=== PATIENT | female | born 1995 | race Caucasian/White ===

== ENCOUNTER 2018-10-09 00:40 | Emergency (ER) | payer SELFPAY ==
--- NOTE | 2018-10-09 01:05 | EDM.PDOC ---
ED HPI GENERAL MEDICAL PROBLEM - General Chief Complaint: ENT Problem Stated Complaint: BLOOD IS COMING OUT OF RT EAR Time Seen by Provider: 10/09/18 01:03 - History of Present Illness INITIAL COMMENTS - FREE TEXT/NARRATIVE: HISTORY AND PHYSICAL: History of present illness: Patient's 22-year-old female presents with concern of bloody discharge and right ear pain 1 day patient denies fever chills nausea vomiting or other complaints Review of systems: As per history of present illness and below otherwise all systems reviewed and negative. Past medical history: As per history of present illness and as reviewed below otherwise noncontributory. Surgical history: As per history of present illness and as reviewed below otherwise noncontributory. Social history: No reported history of drug or alcohol abuse. Family history: As per history of present illness and as reviewed below otherwise noncontributory. Physical exam: HEENT: Atraumatic, normocephalic, pupils reactive, negative for conjunctival pallor or scleral icterus, mucous membranes moist, throat clear, neck supple, nontender, trachea midline. Patient's inflammation and bloody discharge noted in the right external auditory canal TM is incompletely visualized Lungs: Clear to auscultation, breath sounds equal bilaterally, chest nontender. Heart: S1S2, regular, negative for clicks, rubs, or JVD. Abdomen: Soft, nondistended, nontender. Negative for masses or hepatosplenomegaly. Negative for costovertebral tenderness. Pelvis: Stable nontender. Genitourinary: Deferred. Rectal: Deferred. Extremities: Atraumatic, negative for cords or calf pain. Neurovascular unremarkable. Neuro: Awake, alert, oriented. Cranial nerves II through XII unremarkable. Cerebellum unremarkable. Motor and sensory unremarkable throughout. Exam nonfocal. Diagnostics: None Therapeutics: None Impression: #1 otitis media/externa Definitive disposition and diagnosis as appropriate pending reevaluation and review of above. right ear Pain Score (Numeric/FACES): 10 - Related Data Allergies Allergy/AdvReac Type Severity Reaction Status Date / Time No Known Allergies Allergy Verified 10/09/18 00:44 Home Meds: Home Meds . [No Known Home Meds] 10/09/18 [History] Past Medical History - Past Health History Medical/Surgical History: Denies Medical/Surgical History Social & Family History - Family History Family Medical History: Noncontributory - Tobacco Use Smoking Status *Q: Never Smoker - Recreational Drug Use Recreational Drug Use: No ED ROS GENERAL - Review of Systems Review Of Systems: ROS reveals no pertinent complaints other than HPI. ED EXAM, GENERAL - Physical Exam Exam: See Below (See dictation) Course - Vital Signs Last Recorded V/S: Last Vital Signs Temp 36.6 C 10/09/18 00:40 Pulse 76 10/09/18 00:40 Resp 18 10/09/18 00:40 BP 141/91 H 10/09/18 00:40 Pulse Ox 96 10/09/18 00:40 Departure - Departure Time of Disposition: :05 Disposition: Home, Self-Care 01 Condition: Good Clinical Impression: Otitis media, Otitis externa - Discharge Information Additional Instructions: The following information is given to patients seen in the emergency department who are being discharged to home. This information is to outline your options for follow-up care. We provide all patients seen in our emergency department with a follow-up referral. The need for follow-up, as well as the timing and circumstances, are variable depending upon the specifics of your emergency department visit. If you don't have a primary care physician on staff, we will provide you with a referral. We always advise you to contact your personal physician following an emergency department visit to inform them of the circumstance of the visit and for follow-up with them and/or the need for any referrals to a consulting specialist. The emergency department will also refer you to a specialist when appropriate. This referral assures that you have the opportunity for followup care with a specialist. All of these measure are taken in an effort to provide you with optimal care, which includes your followup. Under all circumstances we always encourage you to contact your private physician who remains a resource for coordinating your care. When calling for followup care, please make the office aware that this follow-up is from your recent emergency room visit. If for any reason you are refused follow-up, please contact the [facility] emergency department at and asked to speak to the emergency department charge nurse. Cortisporin/Keflex as prescribed follow-up primary medical doctor as needed as discussed return as needed as discussed
== END 2018-10-09 01:10 | disposition home or self-care (01) ==
LOC: MW.ED 00:40
DX: H60.91 Unspecified otitis externa, right ear (principal); H66.91 Otitis media, unspecified, right ear
CPT/HCPCS: 99282

== ENCOUNTER 2019-10-18 11:21 | Emergency (ER) | payer BC ==
[2019-10-18] MEDS ORDERED: Ketorolac 60 MG/2 ML SDV IM ONE (11:42)
--- NOTE | 2019-10-18 11:50 | EDM.PDOC ---
ED HPI GENERAL MEDICAL PROBLEM - General Chief Complaint: Upper Extremity Injury/Pain Stated Complaint: NERVE PAIN IN HAND Time Seen by Provider: 10/18/19 11:22 Source of Information: Reports: Patient History Limitations: Reports: No Limitations - History of Present Illness INITIAL COMMENTS - FREE TEXT/NARRATIVE: HISTORY AND PHYSICAL: History of present illness: Patient is a 24-year-old female who presents to the emergency room with complaints of intermittent numbness and tingling to her right distal fingertips. 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 She did not have this evaluated at that time. Although the pain has mostly improved she now has intermittent numbness and tingling to the distal tips of all 5 fingers. She states some of the times it is her first 3 fingers and other times it is her third through fifth fingertips. She denies any weakness or difficulty with flexion and extension of the fingers and/or wrist. She is concerned she has Review of systems: As per history of present illness and below otherwise all systems reviewed and negative. Past medical history: As per history of present illness and as reviewed below otherwise noncontributory. Surgical history: As per history of present illness and as reviewed below otherwise noncontributory. Social history: See social history for further information Family history: As per history of present illness and as reviewed below otherwise noncontributory. Physical exam: General: Well-developed and well-nourished 24-year-old female. Alert and oriented. Nontoxic-appearing and in no acute distress. HEENT: Atraumatic, normocephalic, pupils equal and reactive bilaterally, negative for conjunctival pallor or scleral icterus, mucous membranes moist, TM normal bilateral, trachea midline. No drooling or trismus noted. No meningeal signs. No hot potato voice noted. Lungs: Clear to auscultation, breath sounds equal bilaterally, chest nontender. Heart: S1S2, regular rate and rhythm without overt murmur Abdomen: Soft, nondistended, nontender. Skin: Intact, warm, dry. No lesions or rashes noted. Extremities: Atraumatic, moves all extremities per self without difficulty or deficits, good flexion and extension of fingers and wrist. Good strength of fingers and wrist (resistance/force). +CMS. Neurovascular unremarkable. Neuro: Awake, alert, oriented. Cranial nerves II through XII unremarkable. Cerebellum unremarkable. Motor and sensory unremarkable throughout. Exam nonfocal. Notes: She declines wanting any x-rays at this time. We discussed the need to follow up with orthopedics. This does sound like carpel tunnel syndrome, although she states she gets occasional numbness and tingling in her 3rd-5th digits as well. We will try a cock-up wrist splint to help with symptoms. Medication and supportive care measures were reviewed and discussed. Voices understanding and is agreeable to plan of care. Denies any further questions or concerns at this time. Diagnostics: None Therapeutics: Cock-up wrist splint Prescription: Medrol and Diclofenac Impression: Paresthesia Plan: 1. Use the cock-up wrist splint as directed. 2. Avoid over-use or prolonged repetitive movements. 3. Take the medications as prescribed - WITH FOOD. Tylenol can be taken in adjunction to the Diclofenac. 4. Follow up with the orthopedic provider as we discussed. 5. Return to the ED as needed and as discussed. Definitive disposition and diagnosis as appropriate pending reevaluation and review of above. Right Hand Pain Score (Numeric/FACES): 6 - Related Data Allergies Allergy/AdvReac Type Severity Reaction Status Date / Time No Known Allergies Allergy Verified 10/18/19 11:36 Home Meds: Home Meds Diclofenac Sodium 50 mg PO TID PRN #30 tablet. 10/18/19 [Rx] methylPREDNISolone [Medrol] 1 dose PO DAILY 6 Days #1 dospk 10/18/19 [Rx] Past Medical History - Past Health History Medical/Surgical History: Denies Medical/Surgical History Social & Family History - Family History Family Medical History: Noncontributory - Tobacco Use Smoking Status *Q: Never Smoker Second Hand Smoke Exposure: No - Caffeine Use Caffeine Use: Reports: None - Alcohol Use Days Per Week of Alcohol Use: 7 Number of Drinks Per Day: 10 Total Drinks Per Week: 70 - Recreational Drug Use Recreational Drug Use: No Review of Systems - Review of Systems Review Of Systems: Comprehensive ROS is negative, except as noted in HPI. ED EXAM, GENERAL - Physical Exam Exam: See Below (See dictation) Course - Vital Signs Last Recorded V/S: Last Vital Signs Temp 96.5 F L 10/18/19 11:33 Pulse 83 10/18/19 11:33 Resp 18 10/18/19 11:33 BP 134/93 H 10/18/19 11:33 Pulse Ox 98 10/18/19 11:33 - Orders/Labs/Meds Orders: Active Orders 24 hr Category Date Time Status DME for Discharge [COMM] Stat Oth 10/18/19 11:42 Ordered Meds: Medications Discontinued Medications Generic Name Dose Route Start Last Admin Trade Name Freq PRN Reason Stop Dose Admin Ketorolac Tromethamine 60 mg 10/18/19 11:42 Toradol IM 10/18/19 11:43 ONETIME ONE Departure - Departure Time of Disposition: 11:51 Disposition: Home, Self-Care 01 Clinical Impression: Right hand paresthesia - Discharge Information Prescriptions: Diclofenac Sodium 50 mg PO TID PRN #30 tablet.dr PEÑALOZA Reason: Pain methylPREDNISolone [Medrol] 1 dose PO DAILY 6 Days #1 dospk Instructions: Paresthesia, [id number] Referrals: PCP,None [Primary Care Provider] - Forms: ED Department Discharge Additional Instructions: The following information is given to patients seen in the emergency department who are being discharged to home. This information is to outline your options for follow-up care. We provide all patients seen in our emergency department with a follow-up referral. The need for follow-up, as well as the timing and circumstances, are variable depending upon the specifics of your emergency department visit. If you don't have a primary care physician on staff, we will provide you with a referral. We always advise you to contact your personal physician following an emergency department visit to inform them of the circumstance of the visit and for follow-up with them and/or the need for any referrals to a consulting specialist. The emergency department will also refer you to a specialist when appropriate. This referral assures that you have the opportunity for follow-up care with a specialist. All of these measure are taken in an effort to provide you with optimal care, which includes your follow-up. Under all circumstances we always encourage you to contact your private physician who remains a resource for coordinating your care. When calling for follow-up care, please make the office aware that this follow-up is from your recent emergency room visit. If for any reason you are refused follow-up, please contact the [facility] Emergency Department at and asked to speak to the emergency department charge nurse. [facility] [address] [place] [address] [facility] [address] [place] [address] 1. Use the cock-up wrist splint as directed. 2. Avoid over-use or prolonged repetitive movements. 3. Take the medications as prescribed - WITH FOOD. Tylenol can be taken in adjunction to the Diclofenac. 4. Follow up with the orthopedic provider as we discussed. 5. Return to the ED as needed and as discussed. Sepsis Event Note - Evaluation Sepsis Screening Result: No Definite Risk - Focused Exam Vital Signs: Vital Signs Temp Pulse Resp BP Pulse Ox 10/18/19 11:33 96.5 F L 83 18 134/93 H 98 Date Exam was Performed: 10/18/19 Time Exam was Performed: 11:53 - My Orders Last 24 Hours: My Active Orders 10/18/19 11:42 DME for Discharge [COMM] Stat - Assessment/Plan Last 24 Hours: My Active Orders 10/18/19 11:42 DME for Discharge [COMM] Stat
== END 2019-10-18 12:02 | disposition home or self-care (01) ==
LOC: MW.ED 11:21
DX: R20.2 Paresthesia of skin (principal)
CPT/HCPCS: 96372; 99283; J1885

== ENCOUNTER 2019-12-25 22:51 | Emergency (ER) | payer BC ==
[2019-12-25] MEDS ORDERED: Acetaminophen/oxyCODONE 325-5 MG Tab PO ONE (23:54)
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
[2019-12-26 00:26] LABS: BLOOD UREA NITROGEN,BUN 8 mg/dL (7.0-18.0); CARBON DIOXIDE,CO2 28.8 mmol/L (21.0-32.0); CHLORIDE,CL 103 mmol/L (98-107); GLUCOSE RANDOM 107 mg/dL (74-106); POTASSIUM,K 3.9 mmol/L (3.5-5.1); SODIUM,NA 142 mmol/L (136-145)
[2019-12-26] MEDS ORDERED: Bupivacaine 0.5% 10 ML SDV INJECT ONE (01:13)
== END 2019-12-26 03:50 | disposition home or self-care (01) ==
LOC: MW.ED 22:51
DX: S31.41XA Laceration without foreign body of vagina and vulva, initial encounter (principal); V94.31XA Injury to rider of (inflatable) recreational watercraft being pulled behind other watercraft, initial encounter
CPT/HCPCS: 12001; 36415; 80048; 81001; 81025; 85025; 99283; A9270; 99282

== ENCOUNTER 2020-06-12 23:03 | Emergency (ER) | payer SELFPAY ==
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
== END 2020-06-13 00:05 | disposition home or self-care (01) ==
LOC: MW.ED 23:03
DX: T74.21XA Adult sexual abuse, confirmed, initial encounter (principal)
CPT/HCPCS: 99284

== ENCOUNTER 2020-06-19 17:36 | Inpatient (IN) | payer BC ==
[2020-06-19 19:17] LABS: ACETAMINOPHEN <2.0 ug/mL; BLOOD UREA NITROGEN,BUN 7 mg/dL (7.0-18.0); CARBON DIOXIDE,CO2 22.5 mmol/L (21.0-32.0); CHLORIDE,CL 101 mmol/L (98-107); GLUCOSE RANDOM 80 mg/dL (74-106); POTASSIUM,K 3.6 mmol/L (3.5-5.1); SODIUM,NA 139 mmol/L (136-145)
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
[2020-06-19] MEDS ORDERED: MVI, Adult with Vitamin K 10 ML, Thiamine 100 MG, Folic Acid 1 MG in Sodium Chloride 0.... IV ONE ×4 (23:04)
[2020-06-20] MEDS ORDERED: Sodium Chloride 0.9% 1,000 ML IV SCH (00:30)
[2020-06-20 06:06] LABS: BLOOD UREA NITROGEN,BUN 5 mg/dL (7.0-18.0); CARBON DIOXIDE,CO2 24.7 mmol/L (21.0-32.0); CHLORIDE,CL 105 mmol/L (98-107); GLUCOSE RANDOM 69 mg/dL (74-106); POTASSIUM,K 3.6 mmol/L (3.5-5.1); SODIUM,NA 140 mmol/L (136-145)
[2020-06-20] MEDS ORDERED: Ondansetron 4 MG/2 ML SDV IVPUSH PRN (07:55)
[2020-06-20] MEDS ORDERED: Docusate Sodium 100 MG Cap PO PRN (07:55)
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
[2020-06-20] MEDS: Thiamine 100 MG in Sodium Chloride 0.9% 100 ML IV SCH (08:42)
[2020-06-20] MEDS: Sodium Chloride 0.9% 1,000 ML IV SCH ×2 (08:44→17:31)
[2020-06-20] MEDS ORDERED: Folic Acid 50 MG/10 ML MDV SUBCUT SCH (09:00)
[2020-06-20] MEDS ORDERED: Diazepam 5 MG Tab PO SCH (10:30)
[2020-06-20] MEDS: LORazepam 2 MG/ML SDV IVPUSH PRN ×2 (13:56→19:37)
[2020-06-20] MEDS: Diazepam 5 MG Tab PO SCH ×2 (14:16→22:00)
--- NOTE | 2020-06-20 14:31 | US ---
INDICATION: Transaminitis, history of alcohol abuse. COMPARISON: None. TECHNIQUE: Real time harper scale imaging and color Doppler analysis was performed of the right upper quadrant. FINDINGS: Liver: The liver is normal in size measuring 17.4 cm in length. Increased echogenicity compatible with hepatic steatosis. No focal liver lesions. Gallbladder: No stones or sludge. No wall thickening or pericholecystic fluid. Negative sonographic Carrasquillo sign. Bile ducts: No biliary dilation. The common bile duct measures 4 mm in diameter. Pancreas: Normal where seen. Right kidney: The right kidney measures 10.1 cm in length. No hydronephrosis, calculus, or mass. Vascular: Normal caliber proximal abdominal aorta. The IVC is patent. IMPRESSION: 1. Diffuse hepatic steatosis. 2. Exam otherwise unremarkable. Dictated by Belem Zacarias MD @ Jun 20 2020 2:23PM Signed by Dr. Belem Zacarias @ Jun 20 2020 2:29PM
[2020-06-21] MEDS: Sodium Chloride 0.9% 1,000 ML IV SCH ×3 (01:09→18:10)
[2020-06-21] MEDS: Diazepam 5 MG Tab PO SCH ×3 (05:27→21:53)
[2020-06-21 06:27] LABS: BLOOD UREA NITROGEN,BUN 4 mg/dL (7.0-18.0); CARBON DIOXIDE,CO2 29.4 mmol/L (21.0-32.0); CHLORIDE,CL 99 mmol/L (98-107); GLUCOSE RANDOM 89 mg/dL (74-106); POTASSIUM,K 4.1 mmol/L (3.5-5.1); SODIUM,NA 136 mmol/L (136-145)
[2020-06-21] MEDS ORDERED: Magnesium Sulfate/Water 4 GM/100 ML BAG IV ONE (07:50)
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
[2020-06-21] MEDS ORDERED: Magnesium Sulfate/Water 4 GM in Premix Bag 1 BAG IV ONE (09:15)
[2020-06-21] MEDS ORDERED: Magnesium Sulfate/Water 100 ML IV ONE (09:15)
[2020-06-21] MEDS: Folic Acid 1 MG Tab PO SCH (09:31)
[2020-06-21] MEDS: Thiamine 100 MG in Sodium Chloride 0.9% 100 ML IV SCH (09:53)
[2020-06-21] MEDS ORDERED: diphenhydrAMINE 25 MG Cap PO PRN (21:03)
[2020-06-22] MEDS: Sodium Chloride 0.9% 1,000 ML IV SCH ×3 (01:31→18:05)
[2020-06-22] MEDS: Diazepam 5 MG Tab PO SCH ×3 (06:04→20:31)
[2020-06-22 06:17] LABS: BLOOD UREA NITROGEN,BUN 3 mg/dL (7.0-18.0); CARBON DIOXIDE,CO2 24.5 mmol/L (21.0-32.0); CHLORIDE,CL 101 mmol/L (98-107); GLUCOSE RANDOM 87 mg/dL (74-106); SODIUM,NA 134 mmol/L (136-145)
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
[2020-06-22] MEDS: Folic Acid 1 MG Tab PO SCH (09:35)
[2020-06-22] MEDS: Thiamine 100 MG in Sodium Chloride 0.9% 100 ML IV SCH (09:38)
[2020-06-22] MEDS: LORazepam 2 MG/ML SDV IVPUSH PRN (15:33)
[2020-06-23] MEDS: Sodium Chloride 0.9% 1,000 ML IV SCH ×2 (01:36→09:12)
[2020-06-23 06:50] LABS: BLOOD UREA NITROGEN,BUN 5 mg/dL (7.0-18.0); CARBON DIOXIDE,CO2 24.5 mmol/L (21.0-32.0); CHLORIDE,CL 102 mmol/L (98-107); GLUCOSE RANDOM 90 mg/dL (74-106); POTASSIUM,K 3.8 mmol/L (3.5-5.1); SODIUM,NA 136 mmol/L (136-145)
[2020-06-23] MEDS: Diazepam 5 MG Tab PO SCH (09:09)
[2020-06-23] MEDS: Folic Acid 1 MG Tab PO SCH (09:09)
[2020-06-23] MEDS: Thiamine 100 MG in Sodium Chloride 0.9% 100 ML IV SCH (09:37)
[2020-06-23] MEDS ORDERED: Magnesium Sulfate/Water 2 GM/50 ML Premix Bag IV ONE (14:51)
[2020-06-23] MEDS ORDERED: Magnesium Sulfate/Water 2 GM/50 ML BAG IV ONE (15:00)
--- NOTE | 2020-06-23 15:05 | PCM.PN ---
- General Info Date of Service: 06/23/20 - Review of Systems Systems Review Comment:: feeling better, no complaints - Patient Data Vitals - Most Recent: Last Vital Signs Temp 36.2 C 06/23/20 12:13 Pulse 64 06/23/20 12:13 Resp 16 06/23/20 12:13 BP 137/98 H 06/23/20 12:13 Pulse Ox 98 06/23/20 12:13 Weight - Most Recent: 54.885 kg I&O - Last 24 Hours: Intake & Output 06/23/20 06/23/20 06/23/20 06:59 14:59 22:59 Intake Total 3069 1027 Output Total 550 Balance 2519 1027 Lab Results Last 24 Hours: Laboratory Results - last 24 hr 06/23/20 06/23/20 Range/Units 06:00 06:00 WBC 3.08 L (4.0-11.0) K/uL RBC 3.47 L (4.30-5.90) M/uL Hgb 12.3 (12.0-16.0) g/dL Hct 36.7 (36.0-46.0) % MCV 105.8 H (80.0-98.0) fL MCH 35.4 H (27.0-32.0) pg MCHC 33.5 (31.0-37.0) g/dL RDW Std Deviation 51.1 (28.0-62.0) fl RDW Coeff of Logan 13 (11.0-15.0) % Plt Count 70 L (150-400) K/uL MPV 11.60 (7.40-12.00) fL Neut % (Auto) 51.6 (48.0-80.0) % Lymph % (Auto) 30.8 (16.0-40.0) % [place] % (Auto) 14.0 (0.0-15.0) % Eos % (Auto) 2.6 (0.0-7.0) % Baso % (Auto) 1.0 (0.0-1.5) % Neut # (Auto) 1.6 (1.4-5.7) K/uL Lymph # (Auto) 1.0 (0.6-2.4) K/uL [place] # (Auto) 0.4 (0.0-0.8) K/uL Eos # (Auto) 0.1 (0.0-0.7) K/uL Baso # (Auto) 0.0 (0.0-0.1) K/uL Nucleated RBC % 0.0 /100WBC Nucleated RBCs # 0 K/uL Sodium 136 (136-145) mmol/L Potassium 3.8 (3.5-5.1) mmol/L Chloride 102 (98-107) mmol/L Carbon Dioxide 24.5 (21.0-32.0) mmol/L BUN 5 L (7.0-18.0) mg/dL Creatinine 0.7 (0.6-1.0) mg/dL Est Cr Clr Drug Dosing 105.17 mL/min Estimated GFR (MDRD) > 60.0 ml/min Glucose 90 (74-106) mg/dL Calcium 8.7 (8.5-10.1) mg/dL Phosphorus 3.4 (2.6-4.7) mg/dL Magnesium 1.7 L (1.8-2.4) mg/dL Total Bilirubin 2.1 H (0.2-1.0) mg/dL AST 257 H (15-37) IU/L ALT 105 H (14-63) IU/L Alkaline Phosphatase 139 H (46-116) U/L Total Protein 6.8 (6.4-8.2) g/dL Albumin 3.1 L (3.4-5.0) g/dL Globulin 3.7 (2.6-4.0) g/dL Albumin/Globulin Ratio 0.8 L (0.9-1.6) Med Orders - Current: Current Medications Clomipramine HCl (Clomipramine Hcl) 75 mg PO QPM [facility] Last Admin: 06/22/20 18:07 Dose: 75 mg Documented by: Diphenhydramine HCl (Benadryl) 25 mg PO TID PRN PRN Reason: Itching Last Admin: 06/21/20 21:14 Dose: 25 mg Documented by: Docusate Sodium (Colace) 100 mg PO BID PRN PRN Reason: Constipation Folic Acid (Folic Acid) 1 mg PO DAILY [facility] Last Admin: 06/23/20 09:09 Dose: 1 mg Documented by: Thiamine HCl 100 mg/ Sodium (Chloride) 101 mls @ 202 mls/hr IV DAILY [facility] Last Admin: 06/23/20 09:37 Dose: 202 mls/hr Documented by: Magnesium Sulfate (Magnesium Sulfate In Water Premix) 2 gm in 50 mls @ 50 mls/hr IV ONETIME ONE Stop: 06/23/20 15:59 Lorazepam (Ativan) 0 mg IVPUSH Q4H PRN; Protocol PRN Reason: CIWAA Last Admin: 06/22/20 15:33 Dose: 1 mg Documented by: Ondansetron HCl (Zofran) 4 mg IVPUSH Q4H PRN PRN Reason: Nausea Last Admin: 06/20/20 10:30 Dose: 4 mg Documented by: Discontinued Medications Diazepam (Valium.) 5 mg PO BID [facility] Last Admin: 06/20/20 10:30 Dose: 5 mg Documented by: Diazepam (Valium.) 10 mg PO TID [facility] Last Admin: 06/21/20 05:27 Dose: 10 mg Documented by: Diazepam (Valium.) 5 mg PO TID [facility] Last Admin: 06/22/20 06:04 Dose: 5 mg Documented by: Diazepam (Valium.) 5 mg PO BID [facility] Last Admin: 06/23/20 09:09 Dose: 5 mg Documented by: Diazepam (Valium.) 5 mg PO DAILY [facility] Folic Acid (Folic Acid) 1 mg SUBCUT DAILY [facility] Last Admin: 06/20/20 08:41 Dose: 1 mg Documented by: Multivitamins/Minerals 10 ml/Thiamine HCl 100 mg/ Folic Acid 1 mg/ Sodium Chloride 1,011.2 mls @ 999 mls/hr IV ONETIME ONE Stop: 06/20/20 00:04 Last Admin: 06/19/20 23:39 Dose: 999 mls/hr Documented by: Sodium Chloride (Normal Saline) 1,000 mls @ 125 mls/hr IV ASDIRECTED [facility] Last Admin: 06/20/20 00:53 Dose: 125 mls/hr Documented by: Sodium Chloride (Normal Saline) 1,000 mls @ 125 mls/hr IV Q8H [facility] Last Admin: 06/23/20 09:12 Dose: 125 mls/hr Documented by: Magnesium Sulfate (Magnesium Sulfate In Water Premix) 4 gm in 100 mls @ 50 mls/hr IV ONETIME ONE Stop: 06/21/20 09:49 Last Admin: 06/21/20 09:07 Dose: Not Given Documented by: Magnesium Sulfate (Magnesium Sulfate In Water Premix) 100 mls @ 50 mls/hr IV ONETIME ONE Stop: 06/21/20 11:14 Magnesium Sulfate 4 gm/ Premix 100 mls @ 50 mls/hr IV ONETIME ONE Stop: 06/21/20 11:14 Last Admin: 06/21/20 09:32 Dose: 50 mls/hr Documented by: - Exam General: Alert, Oriented Neck: Supple Lungs: Clear to Auscultation, Normal Respiratory Effort Cardiovascular: Regular Rate, Regular Rhythm Extremities: Non-Tender, No Pedal Edema Skin: Warm, Dry, Intact Sepsis Event Note - Evaluation Sepsis Screening Result: No Definite Risk - Focused Exam Vital Signs: Vital Signs Temp Pulse Resp BP Pulse Ox 06/23/20 12:13 36.2 C 64 16 137/98 H 98 06/23/20 09:03 36.6 C 69 16 149/103 H 99 06/23/20 04:00 36.2 C 90 16 128/97 H 97 - Problem List Review Problem List Initiated/Reviewed/Updated: Yes - My Orders Last 24 Hours: My Active Orders 06/23/20 15:00 Magnesium Sulfate/Water [Magnesium Sulfate in Water Premix] 2 gm in 50 ml IV ONETIME - Plan Plan:: This 24-year-old female admitted with alcoholic hepatitis acute alcohol intoxication and suicidal ideation with depression and anxiety 1. Alcoholic hepatitis -RUQ ultrasound obtained which shows hepatic steatosis -Hepatitis panel pending -Transaminitis improving -Encouraged high-protein high-calorie diet. 2. Acute intoxication/alcohol withdrawal -Continue to decrease Valium. Will move to 5 mg daily -CIWAA assessment with Ativan protocol as needed -Thiamine and folic acid 3. Depression/anxiety and suicidal ideation -Dr. Huertas evaluated patient please see his consultation. -Patient is no longer suicidal and has no suicidal ideations -She will be started on clomipramine 75 mg every evening for OCD/depression tendencies per recommendations of Dr. Huertas. -No longer needing suicidal precautions VTE prophylaxis: SCDs CODE STATUS: Full code Dispo: 2 to 3 days pending improvement and management of alcohol withdrawal
[2020-06-24 07:05] LABS: BLOOD UREA NITROGEN,BUN 7 mg/dL (7.0-18.0); CARBON DIOXIDE,CO2 27.5 mmol/L (21.0-32.0); CHLORIDE,CL 99 mmol/L (98-107); GLUCOSE RANDOM 91 mg/dL (74-106); POTASSIUM,K 3.9 mmol/L (3.5-5.1); SODIUM,NA 135 mmol/L (136-145)
[2020-06-24] MEDS ORDERED: Diazepam 5 MG Tab PO SCH (09:00)
--- NOTE | 2020-06-24 09:15 | CONS ---
DATE OF CONSULTATION: 06/21/2020 DATE OF : 1995 PRIMARY CARE PHYSICIAN: None PCP REFERRING PHYSICIAN: Dr. Choudhury SITE WHERE THE SERVICES ARE PROVIDED: [facility] in [place], [place]. SITE WHERE THE SERVICES ARE PROVIDED FROM OUR OFFICE: . LENGTH OF SERVICE FOR THIS 60-MINUTE INPATIENT TELEMEDICINE EVENT: 60 minutes. IDENTIFYING DATA: The patient is a 24-year-old female, who is admitted to the inpatient MICU at [facility]. She is seen for a psychiatric consultation per the request of staff attending, Dr. Choudhury, and his treatment team. CHIEF COMPLAINT: "Me being an alcoholic. And I am working on that. And I was having suicidal thoughts." HISTORY OF PRESENT ILLNESS: The patient is a 24-year-old female who was admitted to the inpatient MICU on June 19, 2020, in the face of severe alcohol intoxication and suicidal ideation. She states that she is not suicidal at this point in time, noting that when she drinks, she gets suicidal. She states "alcohol makes me so sad. My boyfriend just broke up with me." The patient states she had been drinking about "a third to a half gallon" of hard liquor. She states she had her last drink about 48 hours prior to admission. She states that in addition to her severe alcoholism, she has been struggling with depression and anxiety. She is more isolative. She wants to sleep all the time. She has a lot of racing thoughts and ruminations. She has lack of appetite. She is staying well hydrated. She states she drinks a lot of water and then uses a minimal amount of caffeine, and she is denying any other illicit substance use complicating the clinical picture. She states that it is just alcohol. In fact, she does state that if she could get sober, she feels that her quality of life will be a lot better and she will not be so depressed. She does state the one thing that complicates her situation is she has increased cleaning tendencies where she has to clean all the time and have some certain rituals that are pretty bothersome to her. She states she has a lot of guilt and feels hopeless about her situation, and she cries a lot. She has a lot of picking tendencies where she does pick at her fingers all the time until they bleed, and she does state that "my mom has OCD really bad." She has never been treated for OCD though, but she does want to get treatment for her situation both in terms of her depression and any type of OCD tendencies because they do bother her, and then, of course, she does not want to keep drinking. She does not feel that she needs inpatient treatment and would rather have some type of exposure to outpatient AA resources if possible moving forward. MEDICATIONS AT THE TIME OF PRESENTATION: None. ALLERGIES: The patient states she is allergic to estradiol. PAST MEDICAL HISTORY: Significant for alcoholic hepatitis. REVIEW OF SYSTEMS: Aside from the hepatic system, all other major organ systems are negative at this point in time for acute difficulties or complications. FAMILY PSYCHIATRIC AND CD HISTORY: The patient reports father had a history of alcoholism. She has 2 brothers, who also struggle with alcoholism. Her mom had depression and OCD, and her sister struggles with cannabis and opioid dependence. PAST PSYCHIATRIC AND CD HISTORY: The patient denies any previous psychiatric hospitalizations or chemical dependency treatment. She states her longest sobriety since the heavy drinking has been a problem over the past 4 years is currently for the past 48 to 72 hours. She denies any DWIs or any detox admissions and denies any previous suicide attempts. She does have some self-injurious behaviors, last cut on herself about 1-1/2 weeks ago, again in the face of alcohol intoxication. She had some bulimic behaviors in the past, last did that around 17 years of age, and she stopped on her own, "when I got ." PAST PSYCHIATRIC MEDICATION HISTORY: Significant for ADHD medications when the patient was around 8 to 9 years of age. The patient has never been to AA in the past. SOCIAL HISTORY: The patient was born in [place], [place], and raised in [place], [place], and [place]. She is the 5th of 6 siblings, having 2 sisters and 3 brothers. The patient's parents broke up when the patient was growing up but did get back together again. She was raised mostly by her mom. Her father worked in construction. Mother worked in retail. The patient's highest level education is 2 years of college. She had been in her current relationship for about 2 years until they just recently broke up. She has 2 children from a previous relationship. She had one at 23 years of age and one miscarriage at 21 years of age, and she feels that she has moved passed these events. She currently states that her children are with her biological mom at this point in time. The patient lives in [place] with her ex-boyfriend, but she is going to be moving back to [place] where her mom is over to [place], and she just recently got an apartment. She works at [employer], and she enjoys her job. She denies any prior service or any current legal difficulties. She is [place] in terms of her gabriel formation, agnostic at this point in time. She enjoys cleaning, watching TV, and crafts, and her goal is to finish college if she can get sober. MENTAL STATUS EXAMINATION: The patient is a 24-year-old soft-spoken white female in no apparent distress. Speech is of regular rate and rhythm. The patient is cognitively oriented x3. Psychomotor activities are within normal limits. There are no abnormal motor movements or tics observed. Gait is steady. Station is normal. Mood is depressed and a little bit anxious. Affect is consistent with stated mood, restricted and tearful at times throughout the course of the interview but cooperative overall for the purposes of the intake interview. There is no behavioral or stated evidence of acute suicidal or homicidal ideation or acute psychotic, delusional, or paranoid symptoms. Thought processes are significant for racing thoughts and ruminations; however, there are no acute manic symptoms or loose associations evident. Judgment and insight appear unimpaired at this point in time. Motivation for help is good. VITALS: 5 feet 4 inches tall, 125 pounds, 118/91, 75, 16, and 97.1 degrees. IMPRESSION: [place] I: 1. Alcohol dependence, F10.20. 2. Obsessive-compulsive disorder, F42. 3. Major depressive disorder, severe, F32.2. [place] II: None. [place] III: 1. Alcoholic hepatitis. 2. Signs and symptoms of possible alcohol withdrawal. [place] IV: Severe. [place] V: 55 to 60. PLAN: 1. Sobriety. 2. The patient is instructed to maintain good hydration status to help with stool function throughout the day. 3. AA rep is to visit the patient while the patient remains on the unit and is being medically stabilized. 4. Pastoral guidance. 5. Social Work is to visit the patient to help with insurance involvement if possible. 6. Recommend beginning a trial of Anafranil 75 mg q.h.s. to help with symptoms of depression and OCD. 7. The patient is apprised of the benefits and side effects of a newly initiated psychiatric medication regimen. She acknowledges her understanding of these facts and has no further questions by the end of the interview session. 8. Ativan per [facility] protocol. 9. Thiamine supplementation. 10.Folic acid supplementation. 11.We will consider a mood stabilizer if need be going forward if the patient has breakthrough symptoms of mood instability once on the OCD/antidepressant medication. 12.Recommend the patient follows up with outpatient psychiatry once she is medically stabilized and discharged back to the community. 13.We will continue to follow up with the patient on an as-needed basis while she remains on the inpatient MICU at [facility]. 14.We will follow up with the patient sooner if any complications in the interim. 15.Crisis plan is in place. MARLIN / EL /[id number]
[2020-06-24] MEDS: Thiamine 100 MG in Sodium Chloride 0.9% 100 ML IV SCH (09:16)
[2020-06-24] MEDS: Folic Acid 1 MG Tab PO SCH (09:16)
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
== END 2020-06-24 11:27 | disposition home or self-care (01) | DRG 280 ==
LOC: MW.ED 17:36 → MW.ICU 23:05 → MW.MS 06-22 15:38
PROVIDERS: ADMIT Internal Medicine; ATTEND Internal Medicine
DX: K70.10 Alcoholic hepatitis without ascites (principal); F10.239 Alcohol dependence with withdrawal, unspecified; U07.1 COVID-19; F32.2 Major depressive disorder, single episode, severe without psychotic features; E80.6 Other disorders of bilirubin metabolism; H54.7 Unspecified visual loss; F41.0 Panic disorder [episodic paroxysmal anxiety]; D64.9 Anemia, unspecified; F42.9 Obsessive-compulsive disorder, unspecified; Z88.8 Allergy status to other drugs, medicaments and biological substances; Y90.8 Blood alcohol level of 240 mg/100 ml or more
CPT/HCPCS: 36415; 76705; 76705-26; 80053; 80074; 80305-QW; 80307; 83735; 84100; 84443; 84703; 85025; 85610; 93005; 93010; 99285; 99285-25; A9270-GY; J2060; J2405; J3411; J3475; J7030; U0002

== ENCOUNTER 2020-11-04 05:26 | Emergency (ER) | payer SELFPAY ==
[2020-11-04] MEDS ORDERED: Sodium Chloride 0.9% 10 ML Syringe FLUSH PRN (05:48)
[2020-11-04] MEDS ORDERED: Sodium Chloride 0.9% 2.5 ML Syringe FLUSH PRN (05:48)
[2020-11-04] MEDS ORDERED: LORazepam 2 MG/ML SDV IVPUSH ONE (05:48)
--- NOTE | 2020-11-04 05:48 | EDM.PDOC ---
<AndryRandy - Last Filed: 11/04/20 06:35> ED HPI GENERAL MEDICAL PROBLEM - General Stated Complaint: FELL AND HIT HER HEAD Time Seen by Provider: 11/04/20 05:35 - History of Present Illness INITIAL COMMENTS - FREE TEXT/NARRATIVE: HISTORY AND PHYSICAL: History of present illness: This is a 25-year-old female with a history significant for alcohol use disorder in the past who presents ER today secondary to witnessed seizure by her significant other when she woke up today to go take a shower. Patient reports no prior history of seizures. Patient denies any history of hypertension, diabetes, lung, kidney problems. Patient denies any cardiac disease in the past. Patient reports that she believes that she has some liver disease secondary to her alcohol use in the past. Patient denies any recent fevers, shakes, chills, nausea, vomiting, diarrhea, dysuria, frequency, urgency, chest pain, shortness of breath, abdominal discomfort. Patient reports that she drinks approximately 7 beers daily. Patient reports that she checked herself and in June 2020 for rehab and had sobriety for approximately 1 month prior to reinitiating excessive alcohol use once again. Patient reports that she has discomfort to the right latter-day since procedure as well as pain to her right forearm and left biceps region. Patient denies any pain to her lower extremities, hip, abdomen or chest or back since the seizure. Patient admits to excessive alcohol use but denies any drug use. Patient is not on any medications. Patient does have an IUD in place. Review of systems: As per history of present illness and below otherwise all systems reviewed and negative. Past medical history: As per history of present illness and as reviewed below otherwise noncontributory. Surgical history: As per history of present illness and as reviewed below otherwise noncontributory. Social history: No reported history of drug abuse. Family history: As per history of present illness and as reviewed below otherwise noncontributory. Physical exam: This patient was seen and evaluated during the 2019 SARS-CoV-2 novel coronavirus pandemic period. Community viral transmission is ongoing at time of this encounter and the emergency department is operating under pandemic response procedures. Constitutional: Patient is oriented to person, place, and time. Appears well- developed and well-nourished. No distress. HEENT: Moist mucous membranes Head: Normocephalic and atraumatic Eyes: Right eye exhibits no discharge. Left eye exhibits no discharge. No scleral icterus Neck: Normal range of motion. No tracheal deviation present. Cardiovascular: Normal rate and regular rhythm. Heart rate of 110 Pulmonary: Effort normal, no respiratory distress. Abdominal: No distention Musculoskeletal: Normal range of motion Neurologic: Alert and oriented to person, place and time. Skin: [place], warm and dry. Psychiatric: Normal mood and affect. Behavior is normal. Judgment and thought content normal. Nursing note and vital signs have been reviewed Patient has no C-spine T-spine or L-spine tenderness to palpation. Patient has no left upper or right upper quadrant tenderness to palpation. Patient has no crepitus to palpation to the anterior chest wall. Patient is neurologically intact. Patient does not present with any signs or or symptoms that would be consistent with acute intracranial, intra-abdominal, intrathoracic, or long bone injury. All long bones have been palpated and range of motion been performed and there is no evidence of any acute pathology. Patient has mild tenderness palpation to her right latter-day. Patient has no soft tissue swelling or bruising to her head or face. Patient does have some mild tenderness to palpation to her right forearm without any bony deformity, step- off or bruising. Patient does have some bruising identified to her left biceps region but does not have any point bony tenderness, deformity. Diagnostics: CBC, CMP within normal limits. Therapeutics: Banana bag x1 L Ativan 1 mg IV Assessment and plan: This is a 25-year-old female with history significant for alcohol use disorder who presents ER today secondary to a witnessed seizure by her significant other. Patient reports that her significant other described her as falling to the ground with tonic-clonic activity of her upper and lower extremities, clenching of her teeth, and unresponsiveness that lasted for approximately 1 to 2 minutes while walking to the bathroom to take a shower. At this time, the patient is alert awake and orient x3. Patient's physical exam is significant for tenderness to palpation to her right latter-day. Patient seizures most likely secondary to alcohol use disorder with unlikely withdrawal symptoms. Patient reports that in the past that she has had withdrawal from alcohol during cessation. But she describes her symptoms as shakiness and itching and denies any history of alcohol withdrawal seizures in the past. We will obtain labs to assess her electrolytes. Patient will get a CT scan of her head and C-spine secondary to her likely head injury during the seizure. Patient will receive IV fluids including a banana bag and a milligram of Ativan while here in the ED to assist with her tachycardia and likely alcohol induced seizures. 7 AM: Case will be signed out to the incoming physician for final disposition pending CT scan report and further monitoring. Definitive disposition and diagnosis as appropriate pending reevaluation and review of above. head area Pain Score (Numeric/FACES): 4 - Related Data Allergies Allergy/AdvReac Type Severity Reaction Status Date / Time No Known Allergies Allergy Verified 11/04/20 05:44 Home Meds: Home Meds Iud 11/04/20 [History] Past Medical History - Past Health History Medical/Surgical History: Denies Medical/Surgical History HEENT 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: Impaired Vision Cardiovascular 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: None. Denies: CAD, Hypertension, HI Respiratory 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: None. Denies: Asthma Gastrointestinal 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: None Other Gastrointestinal History: states possible stomach ulcer Genitourinary 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: Other (See Below) Other Genitourinary History: Recurrent Yeast Infections [employer] 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: Musculoskeletal 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: None Neurological 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: None Psychiatric 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: Anxiety, Depression, Eating Disorders, Hallucinations, Panic Attack, Suicidal Ideation Endocrine/Metabolic 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: None Hematologic 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: Anemia Immunologic 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: None Oncologic (Cancer) 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: None Dermatologic 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: None - Infectious Disease History Infectious Disease 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: Influenza - Past Surgical History Head Surgeries/Procedures: Reports: None Female Surgical 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: None Social & Family History - Family History Family Medical History: No Pertinent Family History Psychiatric: Reports: Depression, Schizophrenia - Caffeine Use Caffeine Use: Reports: Soda ED ROS GENERAL - Review of Systems Review Of Systems: See Below ED EXAM, GENERAL - Physical Exam Exam: See Below #1 Interpretation EKG Interpretation Comments: EKG: As interpreted by ER physician: Andry: Nonspecific ST-T wave abnormalities Normal axis No evidence of ST elevation HI Normal sinus rhythm heart rate of 78 Departure - Departure Disposition: Home, Self-Care 01 Clinical Impression: Seizure, Alcohol use - Discharge Information Instructions: Alcohol Intoxication, [id number], Seizure, Adult Referrals: PCP,None [Primary Care Provider] - Forms: ED Department Discharge Additional Instructions: You were evaluated today on an emergent basis. At this time your labs and imaging were normal except for some low potassium and signs of alcoholic hepatitis. I do recommend that you continue to go to your rehabilitation for your alcohol use. You did have a witnessed seizure and if you have another seizure we would like you to return to the emergency department. Please follow- up with primary care within [address] [facility] [address] [place] [id number] [facility] [address] [place] [id number] The patient is informed of any results of their evaluation and diagnostic workup and all questions are answered. They are given discharge instructions and return precautions. The patient is stable for discharge. The patient states they understand and agree with the plan and that they will return if their symptoms get worse or if they have any new concerns. The following information is given to patients seen in the emergency department who are being discharged to home. This information is to outline your options for follow-up care. We provide all patients seen in our emergency department with a follow-up referral. The need for follow-up, as well as the timing and circumstances, are variable depending upon the specifics of your emergency department visit. If you don't have a primary care physician on staff, we will provide you with a referral. We always advise you to contact your personal physician following an emergency department visit to inform them of the circumstance of the visit and for follow-up with them and/or the need for any referrals to a consulting specialist. The emergency department will also refer you to a specialist when appropriate. This referral assures that you have the opportunity for follow-up care with a specialist. All of these measure are taken in an effort to provide you with optimal care, which includes your follow-up. Under all circumstances we always encourage you to contact your private physician who remains a resource for coordinating your care. When calling for follow-up care, please make the office aware that this follow-up is from your recent emergency room visit. If for any reason you are refused follow-up, please contact the [facility] Emergency Department at and asked to speak to the emergency department charge nurse. <Al Walker - Last Filed: 11/04/20 08:34> ED HPI GENERAL MEDICAL PROBLEM - History of Present Illness INITIAL COMMENTS - FREE TEXT/NARRATIVE: Patient was signed out to me by Dr. Wilde pending final CT read at 7 AM I did reevaluate the patient and patient was sleeping comfortably and was appropriate, alert and oriented x4 without any complaints. The patient's vitals were stable on my reevaluation. Labs reviewed which did reveal a macrocytosis on CBC with an MCV of 101 otherwise unremarkable. CMP did reveal hyponatremia at 135, hypochloremia at 95, mild elevation in creatinine at 1.1, hypomagnesemia at 1.4 and alcoholic hepatitis with an ALT of 189, AST of 4 1 and a total bilirubin of 1.7. These labs appear to be around the patient's baseline. Serum alcohol level was 165. The radiological images were viewed by myself along with reading the report from the radiologist. CT head without contrast does not reveal any acute intracranial abnormality. CT cervical spine does not reveal any fracture or subluxation. The patient continued to remain stable this morning and throughout her ED visit stay without any further seizures. At this time I did discuss with patient that she would be stable for discharge. The patient is already involved in a zoom call rehabilitation. I did encourage her to keep going to these zoom calls and discussed that if she had any new or worsening symptoms such as recurring seizure that she needed to return to the emergency department. Otherwise she needs to follow-up with her primary care physician for further monitoring. She was amenable discharge at this time and had no further questions Course - Vital Signs Last Recorded V/S: Last Vital Signs Temp 36.0 C L 11/04/20 05:35 Pulse 76 11/04/20 06:04 Resp 18 11/04/20 06:04 BP 128/92 H 11/04/20 06:04 Pulse Ox 98 11/04/20 06:04 - Orders/Labs/Meds Orders: Active Orders 24 hr Category Date Time Status EKG Documentation Completion [RC] AM Care 11/04/20 05:48 Active DRUG SCREEN, URINE [URCHEM] Stat Lab 11/04/20 05:48 Ordered HCG QUALITATIVE,URINE [URCHEM] Stat Lab 11/04/20 05:48 Ordered UA W/ROSA MARIA RFLX IF INDICATED [URIN] Stat Lab 11/04/20 05:49 Ordered Sodium Chloride 0.9% [Saline Flush] Med 11/04/20 05:48 Active 10 ml FLUSH ASDIRECTED PRN Sodium Chloride 0.9% [Saline Flush] Med 11/04/20 05:48 Active 2.5 ml FLUSH ASDIRECTED PRN Saline Lock Insert [OM.PC] Stat Oth 11/04/20 05:48 Ordered Medication Orders Sodium Chloride (Sodium Chloride 0.9% 10 Ml Syringe) 10 ml FLUSH ASDIRECTED PRN PRN Reason: Keep Vein Open Sodium Chloride (Sodium Chloride 0.9% 2.5 Ml Syringe) 2.5 ml FLUSH ASDIRECTED PRN PRN Reason: Keep Vein Open Labs: Laboratory Tests 11/04/20 11/04/20 11/04/20 Range/Units 05:41 05:45 05:45 WBC 5.17 (4.0-11.0) K/uL RBC 4.00 L (4.30-5.90) M/uL Hgb 14.3 (12.0-16.0) g/dL Hct 40.4 (36.0-46.0) % MCV 101.0 H (80.0-98.0) fL MCH 35.8 H (27.0-32.0) pg MCHC 35.4 (31.0-37.0) g/dL RDW Std Deviation 53.5 (28.0-62.0) fl RDW Coeff of [place] 14 (11.0-15.0) % Plt Count 172 (150-400) K/uL MPV 11.20 (7.40-12.00) fL Neut % (Auto) 64.5 (48.0-80.0) % Lymph % (Auto) 18.2 (16.0-40.0) % [place] % (Auto) 16.1 H (0.0-15.0) % Eos % (Auto) 0.2 (0.0-7.0) % Baso % (Auto) 1.0 (0.0-1.5) % Neut # (Auto) 3.3 (1.4-5.7) K/uL Lymph # (Auto) 0.9 (0.6-2.4) K/uL [place] # (Auto) 0.8 (0.0-0.8) K/uL Eos # (Auto) 0.0 (0.0-0.7) K/uL Baso # (Auto) 0.1 (0.0-0.1) K/uL Nucleated RBC % 0.0 /100WBC Nucleated RBCs # 0 K/uL Sodium 135 L (136-145) mmol/L Potassium 3.7 (3.5-5.1) mmol/L Chloride 95 L (98-107) mmol/L Carbon Dioxide 23.0 (21.0-32.0) mmol/L BUN 7 (7.0-18.0) mg/dL Creatinine 1.1 H (0.6-1.0) mg/dL Est Cr Clr Drug Dosing 66.34 mL/min Estimated GFR (MDRD) 59.6 ml/min Glucose 86 (74-106) mg/dL POC Glucose 76 (70-99) mg/dL Calcium 8.7 (8.5-10.1) mg/dL Magnesium 1.4 L (1.8-2.4) mg/dL Total Bilirubin 1.7 H (0.2-1.0) mg/dL AST 401 H (15-37) IU/L ALT 189 H (14-63) IU/L Alkaline Phosphatase 157 H (46-116) U/L Total Protein 8.2 (6.4-8.2) g/dL Albumin 3.8 (3.4-5.0) g/dL Globulin 4.4 H (2.6-4.0) g/dL Albumin/Globulin Ratio 0.9 (0.9-1.6) Prolactin 11.2 ng/mL Ethyl Alcohol 165 mg/dL Meds: Medications Generic Name Dose Route Start Last Admin Trade Name Freq PRN Reason Stop Dose Admin Sodium Chloride 10 ml 11/04/20 05:48 Sodium Chloride 0.9% 10 Ml Syringe FLUSH ASDIRECTED PRN Keep Vein Open Sodium Chloride 2.5 ml 11/04/20 05:48 Sodium Chloride 0.9% 2.5 Ml Syringe FLUSH ASDIRECTED PRN Keep Vein Open Discontinued Medications Generic Name Dose Route Start Last Admin Trade Name Freq PRN Reason Stop Dose Admin Multivitamins/Minerals 10 ml/ 1,011.2 mls @ 999 mls/hr 11/04/20 05:50 11/04/20 06:18 Thiamine HCl 100 mg/ Folic IV 11/04/20 06:50 999 mls/hr Acid 1 mg/ Sodium Chloride ONETIME ONE Administration Lorazepam 1 mg 11/04/20 05:48 11/04/20 06:02 Lorazepam 2 Mg/Ml Sdv IVPUSH 11/04/20 05:49 1 mg ONETIME ONE Administration Departure - Departure Time of Disposition: 08:25 Condition: Fair - Discharge Information *PRESCRIPTION DRUG MONITORING PROGRAM REVIEWED*: No *COPY OF PRESCRIPTION DRUG MONITORING REPORT IN PATIENT [place]: No Sepsis Event Note (ED) - Focused Exam Vital Signs: Vital Signs Temp Pulse Resp BP Pulse Ox 11/04/20 06:04 76 18 128/92 H 98 11/04/20 05:35 36.0 C L 89 18 141/100 H 97
[2020-11-04] MEDS ORDERED: MVI, Adult with Vitamin K 10 ML, Thiamine 100 MG, Folic Acid 1 MG in Sodium Chloride 0.... IV ONE ×4 (05:50)
[2020-11-04 06:16] LABS: POTASSIUM,K 3.7 mmol/L (3.5-5.1)
--- NOTE | 2020-11-04 07:28 | CT ---
INDICATION: Head trauma TECHNIQUE: CT head without contrast. COMPARISON: None. FINDINGS: CSF spaces: Within normal limits for age. Brain parenchyma: The harper-white differentiation is normal. No sign of mass, hemorrhage, or midline shift. Skull base and calvarium: The visualized paranasal sinuses and mastoid air cells demonstrate no acute or significant findings. The visualized orbits are grossly unremarkable. No skull fractures. IMPRESSION: Unremarkable noncontrast head CT. Please note that all CT scans at this facility use dose modulation, iterative reconstruction, and/or weight-based dosing when appropriate to reduce radiation dose to as low as reasonably achievable. Dictated by Harry Navarro MD @ 11/04/2020 7:27:[address] Harry Navarro @ Nov 04 2020 7:27AM
--- NOTE | 2020-11-04 07:37 | CT ---
INDICATION: Head trauma TECHNIQUE: CT cervical spine without contrast. COMPARISON: None FINDINGS: Vertebrae: Alignment is normal. There are no fractures or suspicious bony lesions. 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 Discs and facet joints: Disc spaces and facets are within normal limits. Extraspinal findings: Prevertebral soft tissues, visualized airway, and visualized lungs are unremarkable. IMPRESSION: Unremarkable cervical spine CT. Please note that all CT scans at this facility use dose modulation, iterative reconstruction, and/or weight-based dosing when appropriate to reduce radiation dose to as low as reasonably achievable. Dictated by Harry Navarro MD @ 11/04/2020 7:36:[address] Harry Navarro @ Nov 04 2020 7:36AM
== END 2020-11-04 08:48 | disposition home or self-care (01) ==
LOC: MW.ED 05:26
DX: R56.9 Unspecified convulsions (principal); Z72.89 Other problems related to lifestyle; S40.022A Contusion of left upper arm, initial encounter; X58.XXXA Exposure to other specified factors, initial encounter; Y90.6 Blood alcohol level of 120-199 mg/100 ml
CPT/HCPCS: 36415; 70450; 72125; 80053; 80307; 82947; 83735; 84146; 85025; 93005; 96365; 96375; 99285; J2060; J3411; J7030; 93010; 99284

== ENCOUNTER 2021-02-11 12:25 | Emergency (ER) | payer SELFPAY ==
[2021-02-11] MEDS ORDERED: Sodium Chloride 0.9% 2.5 ML Syringe FLUSH PRN (14:21)
[2021-02-11] MEDS ORDERED: Sodium Chloride 0.9% 10 ML Syringe FLUSH PRN (14:21)
[2021-02-11] MEDS ORDERED: Alum Hydrox/Mag Hydrox/Simeth 15 ML, Lidocaine 2% 5 ML PO ONE ×2 (14:47)
[2021-02-11 15:17] LABS: BLOOD UREA NITROGEN,BUN 6 mg/dL (7.0-18.0); CARBON DIOXIDE,CO2 28.2 mmol/L (21.0-32.0); CHLORIDE,CL 87 mmol/L (98-107); GLUCOSE RANDOM 96 mg/dL (74-106); LIPASE 80 U/L (73-393)
[2021-02-11] MEDS ORDERED: Sodium Chloride 0.9% 1,000 ML IV ONE ×2 (15:17→20:44)
[2021-02-11] MEDS ORDERED: Pantoprazole 80 MG in Sodium Chloride 0.9% 20 ML IVPUSH ONE (15:17)
[2021-02-11 15:34] LABS: SODIUM,NA 127 mmol/L (136-145)
[2021-02-11] MEDS ORDERED: Iopamidol 755 MG/ML 500 ML Multipack Bottle IVPUSH ONE (16:34)
--- NOTE | 2021-02-11 17:16 | CT ---
INDICATION: Upper abdominal pain. Jaundice. Patient is alcoholic. TECHNIQUE: CT of abdomen and pelvis performed after IV injection of 100 mL of [id number]. Findings : The liver is markedly enlarged extending for a craniocaudad length of 24.4 cm x 25.7 cm in transverse dimension. Marked diffuse fat infiltration of the liver with mild areas focal fatty sparing. No obvious hepatic mass. The spleen is enlarged in length extending for 14 cm in craniocaudad dimension but being normal in the other 2 dimensions. IUD in satisfactory position. Small uncalcified nodule right lower lobe anterolaterally nonspecific but likely benign. Few mildly dilated small bowel loops in the left abdomen with air-fluid levels may be related to mild ileus. Small soft tissue nodule in the left mid abdomen anterior laterally along the peritoneal surface or omentum on image 88 measures 6 mm. Increased number of lymph nodes in the mid and upper abdomen are not enlarged. Small amount of air in the vagina. The wall of portions of the ascending colon and cecum appears somewhat prominent with low-density change which may be related incomplete distention. No biliary dilatation. No CT evidence for pancreatitis. Remainder negative. IMPRESSION: 1. No acute disease in abdomen or pelvis. 2. Prominent hepatomegaly with marked fatty infiltration of the liver without hepatic mass. No biliary dilatation. No CT evidence of pancreatitis. Spleen is mildly enlarged in craniocaudad dimension. 3. Small uncalcified nodule right lung base likely benign. 4. Small enhancing nodule in the left mid abdomen anterolaterally along the peritoneal surface or omentum is indeterminate. 5. Mild small bowel ileus in left abdomen. Other findings as above. Please note that all CT scans at this facility use dose modulation, iterative reconstruction, and/or weight-based dosing when appropriate to reduce radiation dose to as low as reasonably achievable. Dictated by Kevin Colon MD @ 02/11/2021 5:16:[address] Kevin Colon @ Feb 11 2021 5:16PM
[2021-02-11 17:46] LABS: ACETAMINOPHEN <2.0 ug/mL
--- NOTE | 2021-02-11 18:22 | EDM.PDOC ---
ED HPI GENERAL MEDICAL PROBLEM - General Chief Complaint: Gastrointestinal Problem Stated Complaint: BLOOD IN URINE, ENLARGED LIVER Time Seen by Provider: 02/11/21 12:41 Source of Information: Reports: Patient History Limitations: Reports: No Limitations - History of Present Illness INITIAL COMMENTS - FREE TEXT/NARRATIVE: HISTORY AND PHYSICAL: History of present illness: Patient is a 25-year-old female, with a history of chronic alcohol use, who presents emergency room today with concern of abdominal pain x1 week worsening over the past 2 days with associated jaundice, and possible blood in urine. Patient states that she has had intermittent episodes of vomiting blood but states that she has not had any vomiting today. Patient states that she is a daily alcohol user and typically drinks rum. Patient states she has taken several shots today. Patient states that she does drink from when she wakes up and does drink all day long. Patient states that if she were to stop drinking, she feels as if she would withdraw. Patient states that she last detox in June and was told that her liver was enlarged. Patient states over the past several days she has had worsening abdominal pain and noticed her skin and eyes turning yellow which has never happened to patient before. Patient states that she does have an IUD so does not believe to be . Patient denies any other substance use. Patient denies any other health history. Patient denies fever, chills, chest pain, shortness of breath, or cough. Denies headache, neck stiff ness, change in vision, syncope, or near syncope. Denies diarrhea, constipation, or dysuria. Has not noted any blood in stool. Review of systems: As per history of present illness and below otherwise all systems reviewed and n egative. Past medical history: As per history of present illness and as reviewed below otherwise noncontributory. Surgical history: As per history of present illness and as reviewed below otherwise noncontributory. Social history: See social history for further information Family history: As per history of present illness and as reviewed below otherwise noncontributory. Physical exam: General: Patient is alert, oriented, and in no acute distress. Patient sitting comfortably on exam table. Vitals stable and reviewed by me. HEENT: Atraumatic, normocephalic, pupils equal and reactive bilaterally, negative for conjunctival pallor but does have scleral icterus, mucous membranes moist, TMs normal bilaterally, throat clear, neck supple, nontender, trachea midline. No drooling or trismus noted. No meningeal signs. No hot potato voice noted. Lungs: Clear to auscultation, breath sounds equal bilaterally, chest nontender. Heart: S1S2, regular rate and rhythm without overt murmur Abdomen: No ascites on exam. Soft, nondistended, moderate epigastric tenderness w negative carrasquillo sign, hepatomegaly. Negative for costovertebral tenderness. Pelvis: Stable nontender. Genitourinary: Deferred. Rectal: Deferred. Skin: Diffuse jaundice. Intact, warm, dry. No lesions or rashes noted. Extremities: No lower extremity edema. Atraumatic, negative for cords or calf pain. Neurovascular unremarkable. Neuro: Awake, alert, oriented. Cranial nerves II through XII unremarkable. Cerebellum unremarkable. Motor and sensory unremarkable throughout. Exam nonfocal. Notes: Patient is a 25-year-old female, with a history of chronic alcohol use, who presents emergency room today with concern of jaundice and abdominal pain worsening over the past several days. Upon arrival to the ED, patient is vit ally stable and does have diffuse jaundice with scleral icterus on exam. Patient does have moderate epigastric tenderness. Will obtain lab work and obtain abdominal pelvic CT scan and right upper quadrant ultrasound. Patient does make note in her HPI few episodes of hematemesis, has not had this occur today, however will provide a dose of Protonix here in the emergency room. CBC shows a decreased red blood cell count 2.98, hemoglobin decreased at 10.7 and hematocrit decreased at 30. Patient does have some macrocytic indices including MCV of 101.4, and MCH of 36.1 and RDW elevation of 16. Otherwise mild derangements of CBC are unremarkable. INR is mildly elevated at 1.35. CMP is remarkable for hyponatremia of 127, hypokalemia of 3, hypochloremia of 87. Patient has an elevated total bilirubin of 10.3 with concern of biliary obstructive labs with AST of 476, ALT 117, and alk phos 341 all elevated. Will obtain a direct and indirect bilirubin. Ammonia is unremarkable. Remainder of CMP is unremarkable. Lipase is normal. hCG is negative. Urinalysis does show large bilirubin is otherwise clear of infection. Acetaminophen less than 2. ETOH alcohol level 32. Mg low at 1. Will give magnesium. Abdominal pelvic CT scan shows no acute disease in the abdomen or pelvis. Prominent hepatomegaly with marked fatty infiltration of the liver without hepatic mass. No biliary dilation. No CT evidence of pancreatitis. Spleen is mildly enlarged. Small uncalcified nodule in right lung base likely benign. Small enhancing nodule in the left mid abdomen anterior laterally along the peritoneal surface of the omentum is indeterminate. Mild small bowel ileus in left abdomen. Abdominal RUQ US shows gallbladder wall mildly thickened without evidence of cholelithiasis. Negative Carrasquillo sign and no pericholecystic fluid. If concern for possible acalculous cholecystitis, HIDA scan recommended. Common bile duct within normal limits. Prominent diffuse fatty infiltration of the liver. Patient does have an elevated direct bilirubin of 8.3 with normal indirect of 2.2. Dr. Choudhury, general surgeon houseperson, was in the ER separate from patients case but has reviewed patients labwork/imaging and thoroughly discussed patients case and suggests calling for ERCP consideration to GI specialist for obstructive biliary concern. I did call and speak to the GI specialist on-call for [facility], Dr. Parker and feels that based off patient's lab work, clinical presentation, and imaging that patient is more likely experiencing alcoholic hepatitis/cirrhosis and does feel that the gallbladder thickening is secondary to her liver dysfunction and not acalculous cholecystitis. He does not recommend ERCP at this time. He does feel that if concern further for r/o obstruction, could consider MRCP, however he feels this is a medical admit and not surgical and does not require ERCP. I further discussed case with Dr. Choudhury who still in the ER, who states [facility] does not have the ability to perform MRCP or HIDA to r/o possible biliary obstruction. He is concerned about her lab work elevations and feels that in order to stay in [place], she would require an MRCP which our facility is not able to obtain. He recommends transfer of patient to a higher level of care to receive MRCP. I did call [facility] however they are at capacity and unable to accept transfer. I did call and speak to Dr. Lewis, hospitalist for [facility], and thoroughly discussed patient's case. He is accepting of transfer. EMS arranged. On reevaluation of patient, she remains vitally stable throughout stay in ED. patient does not have any episodes of vomiting in the emergency room. Voices understanding and is agreeable to plan of care. Denies any further questions or concerns at this time. Diagnostics: CBC, CMP, INR, Lipase, ETOH, Acetaminophen, RUQ US, Abd/Pelvic CT w cont, Indirect/Direct bili, UA, Mg. Phos Therapeutics: GI cocktail, Protonix, Magnesium, normal saline, thiamine, folate, K Impression: Alcoholic hepatitis r/o liver failure/ biliary obstruction Macrocytic Anemia Hyponatremia Hypokalemia Hypomagnesemia Chronic alcohol use Plan: Transfer to Dr. Lewis via EMS at [facility] Definitive disposition and diagnosis as appropriate pending reevaluation and review of above. Abdomen Pain Score (Numeric/FACES): 3 - Related Data Allergies Allergy/AdvReac Type Severity Reaction Status Date / Time No Known Allergies Allergy Verified 11/04/20 05:44 Home Meds: Home Meds Iud 11/04/20 [History] Past Medical History - Past Health History Medical/Surgical History: Denies Medical/Surgical History HEENT 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: Impaired Vision Cardiovascular 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: None Respiratory 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: None Gastrointestinal 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: None Other Gastrointestinal History: states possible stomach ulcer Genitourinary 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: None Other Genitourinary History: Recurrent Yeast Infections 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: Musculoskeletal 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: None Neurological 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: None Psychiatric 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: Anxiety, Depression, Eating Disorders, Hallucin ations, Panic Attack, Suicidal Ideation Endocrine/Metabolic 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: None Insulin Pump Model and Major Assembly Inspector: None Hematologic 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: Anemia Immunologic 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: None Oncologic (Cancer) 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: None Dermatologic 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: None - Infectious Disease History Infectious Disease 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: Influenza - Past Surgical History Head Surgeries/Procedures: Reports: None Female Surgical 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: None Social & Family History - Family History Family Medical History: No Pertinent Family History Psychiatric: Reports: Depression, Schizophrenia - Tobacco Use Tobacco Use Status *Q: Never Tobacco User Second Hand Smoke Exposure: No - Caffeine Use Caffeine Use: Reports: None - Recreational Drug Use Recreational Drug Use: No ED ROS GENERAL - Review of Systems Review Of Systems: Comprehensive ROS is negative, except as noted in HPI. ED EXAM, GENERAL - Physical Exam Exam: See Below (see dictation) Course - Vital Signs Last Recorded V/S: Last Vital Signs Temp 97.4 F 02/11/21 14:13 Pulse 78 02/11/21 22:52 Resp 28 H 02/11/21 22:52 BP 103/78 02/11/21 22:52 Pulse Ox 97 02/11/21 22:52 - Orders/Labs/Meds Orders: Active Orders 24 hr Category Date Time Status Magnesium Sulfate/Water [Magnesium Sulfate in Water 4 Med 02/11/21 20:44 Active GM/100 ML] 4 gm Premix Bag 1 bag IV ONETIME Potassium Chloride [Klor-Con M20] Med 02/12/21 22:20 Once 40 meq PO DAILY ONE Sodium Chloride 0.9% [Saline Flush] Med 02/11/21 14:21 Active 10 ml FLUSH ASDIRECTED PRN Sodium Chloride 0.9% [Saline Flush] Med 02/11/21 14:21 Active 2.5 ml FLUSH ASDIRECTED PRN Saline Lock Insert [OM.PC] Stat Oth 02/11/21 14:21 Ordered Medication Orders Magnesium Sulfate 4 gm/ Premix 100 mls @ 25 mls/hr IV ONETIME ONE Stop: 02/12/21 00:43 Last Admin: 02/11/21 21:06 Dose: 25 mls/hr Documented by: JAROCHO Potassium Chloride (Potassium Chloride 20 Meq Tab.Er) 40 meq PO DAILY ONE Stop: 02/12/21 22:21 Sodium Chloride (Sodium Chloride 0.9% 10 Ml Syringe) 10 ml FLUSH ASDIRECTED PRN PRN Reason: Keep Vein Open Last Admin: 02/11/21 14:32 Dose: 10 ml Documented by: PATRICIO Sodium Chloride (Sodium Chloride 0.9% 2.5 Ml Syringe) 2.5 ml FLUSH ASDIRECTED PRN PRN Reason: Keep Vein Open Last Admin: 02/11/21 14:32 Dose: 2.5 ml Documented by: PATRICIO Labs: Laboratory Tests 02/11/21 02/11/21 02/11/21 Range/Units 14:44 14:44 14:44 WBC 8.58 (4.0-11.0) K/uL RBC 2.96 L (4.30-5.90) M/uL Hgb 10.7 L (12.0-16.0) g/dL Hct 30.0 L (36.0-46.0) % MCV 101.4 H (80.0-98.0) fL MCH 36.1 H (27.0-32.0) pg MCHC 35.7 (31.0-37.0) g/dL RDW Std Deviation 57.8 (28.0-62.0) fl RDW Coeff of [place] 16 H (11.0-15.0) % Plt Count 155 (150-400) K/uL MPV 10.10 (7.40-12.00) fL Neut % (Auto) 71.9 (48.0-80.0) % Lymph % (Auto) 13.3 L (16.0-40.0) % [place] % (Auto) 13.9 (0.0-15.0) % Eos % (Auto) 0.2 (0.0-7.0) % Baso % (Auto) 0.7 (0.0-1.5) % Neut # (Auto) 6.2 H (1.4-5.7) K/uL Lymph # (Auto) 1.1 (0.6-2.4) K/uL [place] # (Auto) 1.2 H (0.0-0.8) K/uL Eos # (Auto) 0.0 (0.0-0.7) K/uL Baso # (Auto) 0.1 (0.0-0.1) K/uL Nucleated RBC % 0.0 /100WBC Nucleated RBCs # 0 K/uL INR Sodium 127 L (136-145) mmol/L Potassium 3.0 L (3.5-5.1) mmol/L Chloride 87 L (98-107) mmol/L Carbon Dioxide 28.2 (21.0-32.0) mmol/L BUN 6 L (7.0-18.0) mg/dL Creatinine 0.8 (0.6-1.0) mg/dL Est Cr Clr Drug Dosing 91.21 mL/min Estimated GFR (MDRD) > 60.0 ml/min Glucose 96 (74-106) mg/dL Calcium 7.9 L (8.5-10.1) mg/dL Phosphorus (2.6-4.7) mg/dL Magnesium (1.8-2.4) mg/dL Total Bilirubin 10.3 H (0.2-1.0) mg/dL Direct Bilirubin (0.0-0.5) mg/dL Indirect Bilirubin AST 476 H (15-37) IU/L ALT 117 H (14-63) IU/L Alkaline Phosphatase 341 H (46-116) U/L Ammonia (19-54) ug/dL Total Protein 6.3 L (6.4-8.2) g/dL Albumin 2.3 L (3.4-5.0) g/dL Globulin 4.0 (2.6-4.0) g/dL Albumin/Globulin Ratio 0.6 L (0.9-1.6) Lipase 80 (73-393) U/L HCG, Qual NEGATIVE (NEG) Urine Color Urine Appearance Urine pH (5.0-8.0) Ur Specific [place] (1.001-1.035) Urine Protein (NEGATIVE) mg/dL Urine Glucose (UA) (NEGATIVE) mg/dL Urine Ketones (NEGATIVE) mg/dL Urine Occult Blood (NEGATIVE) Urine Nitrite (NEGATIVE) Urine Bilirubin (NEGATIVE) Urine Ictotest Urine Urobilinogen (<2.0) EU/dL Ur Leukocyte Esterase (NEGATIVE) Acetaminophen ug/mL Ethyl Alcohol mg/dL SARS-CoV-2 RNA (DEJON) (NEGATIVE) 02/11/21 02/11/21 02/11/21 Range/Units 14:44 14:44 17:00 WBC (4.0-11.0) K/uL RBC (4.30-5.90) M/uL Hgb (12.0-16.0) g/dL Hct (36.0-46.0) % MCV (80.0-98.0) fL MCH (27.0-32.0) pg MCHC (31.0-37.0) g/dL RDW Std Deviation (28.0-62.0) fl RDW Coeff of [place] (11.0-15.0) % Plt Count (150-400) K/uL MPV (7.40-12.00) fL Neut % (Auto) (48.0-80.0) % Lymph % (Auto) (16.0-40.0) % [place] % (Auto) (0.0-15.0) % Eos % (Auto) (0.0-7.0) % Baso % (Auto) (0.0-1.5) % Neut # (Auto) (1.4-5.7) K/uL Lymph # (Auto) (0.6-2.4) K/uL [place] # (Auto) (0.0-0.8) K/uL Eos # (Auto) (0.0-0.7) K/uL Baso # (Auto) (0.0-0.1) K/uL Nucleated RBC % /100WBC Nucleated RBCs # K/uL INR 1.35 Sodium (136-145) mmol/L Potassium (3.5-5.1) mmol/L Chloride (98-107) mmol/L Carbon Dioxide (21.0-32.0) mmol/L BUN (7.0-18.0) mg/dL Creatinine (0.6-1.0) mg/dL Est Cr Clr Drug Dosing mL/min Estimated GFR (MDRD) ml/min Glucose (74-106) mg/dL Calcium (8.5-10.1) mg/dL Phosphorus 4.1 (2.6-4.7) mg/dL Magnesium 1.0 L (1.8-2.4) mg/dL Total Bilirubin (0.2-1.0) mg/dL Direct Bilirubin (0.0-0.5) mg/dL Indirect Bilirubin AST (15-37) IU/L ALT (14-63) IU/L Alkaline Phosphatase (46-116) U/L Ammonia (19-54) ug/dL Total Protein (6.4-8.2) g/dL Albumin (3.4-5.0) g/dL Globulin (2.6-4.0) g/dL Albumin/Globulin Ratio (0.9-1.6) Lipase (73-393) U/L HCG, Qual (NEG) Urine Color YELLOW Urine Appearance CLEAR Urine pH 7.0 (5.0-8.0) Ur Specific [place] 1.010 (1.001-1.035) Urine Protein NEGATIVE (NEGATIVE) mg/dL Urine Glucose (UA) NEGATIVE (NEGATIVE) mg/dL Urine Ketones NEGATIVE (NEGATIVE) mg/dL Urine Occult Blood NEGATIVE (NEGATIVE) Urine Nitrite NEGATIVE (NEGATIVE) Urine Bilirubin LARGE H (NEGATIVE) Urine Ictotest POSITIVE Urine Urobilinogen 0.2 (<2.0) EU/dL Ur Leukocyte Esterase NEGATIVE (NEGATIVE) Acetaminophen ug/mL Ethyl Alcohol mg/dL SARS-CoV-2 RNA (DEJON) (NEGATIVE) 02/11/21 02/11/21 02/11/21 Range/Units 17:10 17:10 18:30 WBC (4.0-11.0) K/uL RBC (4.30-5.90) M/uL Hgb (12.0-16.0) g/dL Hct (36.0-46.0) % MCV (80.0-98.0) fL MCH (27.0-32.0) pg MCHC (31.0-37.0) g/dL RDW Std Deviation (28.0-62.0) fl RDW Coeff of [place] (11.0-15.0) % Plt Count (150-400) K/uL MPV (7.40-12.00) fL Neut % (Auto) (48.0-80.0) % Lymph % (Auto) (16.0-40.0) % [place] % (Auto) (0.0-15.0) % Eos % (Auto) (0.0-7.0) % Baso % (Auto) (0.0-1.5) % Neut # (Auto) (1.4-5.7) K/uL Lymph # (Auto) (0.6-2.4) K/uL [place] # (Auto) (0.0-0.8) K/uL Eos # (Auto) (0.0-0.7) K/uL Baso # (Auto) (0.0-0.1) K/uL Nucleated RBC % /100WBC Nucleated RBCs # K/uL INR Sodium (136-145) mmol/L Potassium (3.5-5.1) mmol/L Chloride (98-107) mmol/L Carbon Dioxide (21.0-32.0) mmol/L BUN (7.0-18.0) mg/dL Creatinine (0.6-1.0) mg/dL Est Cr Clr Drug Dosing mL/min Estimated GFR (MDRD) ml/min Glucose (74-106) mg/dL Calcium (8.5-10.1) mg/dL Phosphorus (2.6-4.7) mg/dL Magnesium (1.8-2.4) mg/dL Total Bilirubin 10.5 H (0.2-1.0) mg/dL Direct Bilirubin 8.30 H (0.0-0.5) mg/dL Indirect Bilirubin 2.20 AST (15-37) IU/L ALT (14-63) IU/L Alkaline Phosphatase (46-116) U/L Ammonia < 17 L (19-54) ug/dL Total Protein (6.4-8.2) g/dL Albumin (3.4-5.0) g/dL Globulin (2.6-4.0) g/dL Albumin/Globulin Ratio (0.9-1.6) Lipase (73-393) U/L HCG, Qual (NEG) Urine Color Urine Appearance Urine pH (5.0-8.0) Ur Specific [place] (1.001-1.035) Urine Protein (NEGATIVE) mg/dL Urine Glucose (UA) (NEGATIVE) mg/dL Urine Ketones (NEGATIVE) mg/dL Urine Occult Blood (NEGATIVE) Urine Nitrite (NEGATIVE) Urine Bilirubin (NEGATIVE) Urine Ictotest Urine Urobilinogen (<2.0) EU/dL Ur Leukocyte Esterase (NEGATIVE) Acetaminophen <2.0 ug/mL Ethyl Alcohol 32 mg/dL SARS-CoV-2 RNA (DEJON) NEGATIVE (NEGATIVE) Meds: Medications Generic Name Dose Route Start Last Admin Trade Name Freq PRN Reason Stop Dose Admin Magnesium Sulfate 4 gm/ Premix 100 mls @ 25 mls/hr 02/11/21 20:44 02/11/21 21:06 IV 02/12/21 00:43 25 mls/hr ONETIME ONE Administration Potassium Chloride 40 meq 02/12/21 22:20 Potassium Chloride 20 Meq Tab.Er PO 02/12/21 22:21 DAILY ONE Sodium Chloride 10 ml 02/11/21 14:21 02/11/21 14:32 Sodium Chloride 0.9% 10 Ml Syringe FLUSH 10 ml ASDIRECTED PRN Administration Keep Vein Open Sodium Chloride 2.5 ml 02/11/21 14:21 02/11/21 14:32 Sodium Chloride 0.9% 2.5 Ml Syringe FLUSH 2.5 ml ASDIRECTED PRN Administration Keep Vein Open Discontinued Medications Generic Name Dose Route Start Last Admin Trade Name Freq PRN Reason Stop Dose Admin Al Hydroxide/Mg Hydroxide 15 0 ml 02/11/21 14:47 02/11/21 14:59 ml/ Lidocaine HCl 5 ml PO 02/11/21 14:48 20 each ONETIME ONE Administration Folic Acid 1 mg 02/12/21 09:00 Folic Acid 50 Mg/10 Ml Mdv IV DAILY DARWIN Folic Acid 1 mg 02/11/21 21:18 02/11/21 21:28 Folic Acid 50 Mg/10 Ml Mdv IV 02/11/21 21:19 1 mg NOW STA Administration Sodium Chloride 1,000 mls @ 999 mls/hr 02/11/21 15:17 02/11/21 16:22 Normal Saline IV 02/11/21 16:17 999 mls/hr STAT ONE Administration Pantoprazole Sodium 80 mg/ 20 mls @ 420 mls/hr 02/11/21 15:17 02/11/21 15:46 Sodium Chloride IVPUSH 02/11/21 15:19 420 mls/hr ONETIME ONE Administration Sodium Chloride 1,000 mls @ 999 mls/hr 02/11/21 20:44 02/11/21 21:03 Normal Saline IV 02/11/21 21:44 999 mls/hr STAT ONE Administration Thiamine HCl 100 mg/ Sodium 101 mls @ 202 mls/hr 02/11/21 20:53 02/11/21 21:28 Chloride IV 02/11/21 20:54 202 mls/hr ONETIME ONE Administration Iopamidol 100 ml 02/11/21 16:34 02/11/21 16:35 Iopamidol 755 Mg/Ml 500 Ml Multipack Bottle IVPUSH 02/11/21 16:35 100 ml ONETIME ONE Administration Departure - Departure Time of Disposition: 22:18 Disposition: DC/Tfer to [facility] 02 Clinical Impression: Alcoholic hepatitis without ascites, Macrocytic anemia, Hyponatremia, Hypokalemia, Hypomagnesemia, Chronic alcohol use - Discharge Information Referrals: PCP,None [Primary Care Provider] - Forms: ED Department Discharge Sepsis Event Note (ED) - Evaluation Sepsis Screening Result: No Definite Risk - Focused Exam Vital Signs: Vital Signs Temp Pulse Resp BP Pulse Ox 02/11/21 22:52 78 28 H 103/78 97 02/11/21 20:04 87 18 107/75 96 02/11/21 14:13 97.4 F 91 20 115/81 98 - My Orders Last 24 Hours: My Active Orders 02/11/21 14:21 Sodium Chloride 0.9% [Saline Flush] 10 ml FLUSH ASDIRECTED PRN Sodium Chloride 0.9% [Saline Flush] 2.5 ml FLUSH ASDIRECTED PRN Saline Lock Insert [OM.PC] Stat 02/11/21 20:44 Magnesium Sulfate/Water [Magnesium Sulfate in Water 4 GM/100 ML] 4 gm Premix Bag 1 bag IV ONETIME 02/12/21 22:20 Potassium Chloride [Klor-Con M20] 40 meq PO DAILY ONE - Assessment/Plan Last 24 Hours: My Active Orders 02/11/21 14:21 Sodium Chloride 0.9% [Saline Flush] 10 ml FLUSH ASDIRECTED PRN Sodium Chloride 0.9% [Saline Flush] 2.5 ml FLUSH ASDIRECTED PRN Saline Lock Insert [OM.PC] Stat 02/11/21 20:44 Magnesium Sulfate/Water [Magnesium Sulfate in Water 4 GM/100 ML] 4 gm Premix Bag 1 bag IV ONETIME 02/12/21 22:20 Potassium Chloride [Klor-Con M20] 40 meq PO DAILY ONE
--- NOTE | 2021-02-11 20:08 | US ---
INDICATION: Right upper quadrant pain with obstructive labs. TECHNIQUE: Abdominal limited ultrasound. COMPARISON: Today`s CT. FINDINGS: Pancreas is not well visualized. No sonographic Carrasquillo`s sign. Gallbladder wall is upper limits of normal to mildly thickened. No gallstones. No pericholecystic fluid. Common bile duct measures 2.2 mm which is within normal limits. Right kidney measures 10.6 cm and is negative for hydronephrosis. Marked diffuse fatty infiltration of the liver as seen on today`s CT. Right kidney measures 10.6 cm and is negative for hydronephrosis. Proximal abdominal inferior vena cava is patent with flow in the appropriate direction. Remainder negative. IMPRESSION: 1. Gallbladder wall is upper limits of normal mildly thickened. No evidence of cholelithiasis. No sonographic Carrasquillo`s sign or pericholecystic fluid. If there is clinical concern for acalculous cholecystitis, a HIDA scan could be performed. 2. Common bile duct normal in caliber. 3. Prominent diffuse fatty infiltration of the liver 4. Pancreas not well visualized. Dictated by Kevin Colon MD @ 02/11/2021 8:06:[address] Kevin Colon @ Feb 11 2021 8:06PM
[2021-02-11] MEDS ORDERED: Magnesium Sulfate/Water 4 GM in Premix Bag 1 BAG IV ONE (20:44)
[2021-02-11] MEDS ORDERED: Thiamine 100 MG in Sodium Chloride 0.9% 100 ML IV ONE (20:53)
[2021-02-11] MEDS ORDERED: Folic Acid 50 MG/10 ML MDV IV STA (21:18)
[2021-02-12] MEDS ORDERED: Folic Acid 50 MG/10 ML MDV IV SCH (09:00)
[2021-02-12] MEDS ORDERED: Potassium Chloride 20 MEQ Tab.ER PO ONE (22:20)
== END 2021-02-11 23:21 ==
LOC: MW.ED 12:25
DX: K70.10 Alcoholic hepatitis without ascites (principal); F10.20 Alcohol dependence, uncomplicated; D50.9 Iron deficiency anemia, unspecified; E87.1 Hypo-osmolality and hyponatremia; E87.6 Hypokalemia; E83.42 Hypomagnesemia; Z20.822 Contact with and (suspected) exposure to COVID-19
CPT/HCPCS: 36415; 74177; 76705; 80053; 80143; 80307; 81003; 82140; 82247; 82248; 83690; 83735; 84100; 84703; 85025; 85610; 87635; 96365; 96366; 96368; 96375; 99285; A9270; C9113; J3411; J3475; J7030; Q9967; U0002

== ENCOUNTER 2022-01-12 21:47 | Emergency (ER) | payer MEDICAID ==
[2022-01-12] MEDS ORDERED: Lidocaine 1% 5 ML VIAL INJECT ONE (22:03)
== END 2022-01-12 22:54 | disposition home or self-care (01) ==
LOC: MW.ED 21:47
DX: S61.213A Laceration without foreign body of left middle finger without damage to nail, initial encounter (principal); W26.8XXA Contact with other sharp object(s), not elsewhere classified, initial encounter
CPT/HCPCS: 12001; 99282

== ENCOUNTER 2022-03-26 06:00 | Day surgery (SDC) | payer MEDICAID ==
[2022-03-26] MEDS ORDERED: Lidocaine 1% with EPINEPHrine 1:100,000 50 ML MDV ONE (07:43)
[2022-03-26] MEDS ORDERED: Iodine/Potassium Iodide 5% Solution 14 ML Bottle ONE (07:43)
[2022-03-26] MEDS ORDERED: Ferric Subsulfate Topical Soln 8 GM (8 ML) Bottle ONE (07:43)
[2022-03-26] MEDS ORDERED: Lidocaine 2% 5 ML SDV ONE (09:25)
[2022-03-26] MEDS ORDERED: fentaNYL 100 MCG/2 ML SDV ONE (09:26)
[2022-03-26] MEDS ORDERED: Propofol 200 MG/20 ML SDV ONE (09:26)
[2022-03-26] MEDS ORDERED: Lactated Ringers 1,000 ML IV ONE (10:30)
[2022-03-26] MEDS ORDERED: Glycopyrrolate 0.2 MG/ML SDV ONE (11:26)
[2022-03-26] MEDS ORDERED: Ondansetron 4 MG/2 ML SDV ONE (11:26)
[2022-03-26] MEDS ORDERED: Dexamethasone 4 MG/ML 5 ML MDV ONE (11:26)
[2022-03-26] MEDS ORDERED: Ketorolac 30 MG/ML SDV ONE (11:26)
[2022-03-26] MEDS ORDERED: ePHEDrine 50 MG/ML SDV ONE (11:26)
== END 2022-03-26 11:45 ==
LOC: MW.SDS 06:00
PROVIDERS: ATTEND Obstetrics & Gynecology
DX: D06.9 Carcinoma in situ of cervix, unspecified (principal); D64.9 Anemia, unspecified; F41.9 Anxiety disorder, unspecified; Z79.899 Other long term (current) drug therapy; Z98.890 Other specified postprocedural states
CPT/HCPCS: 36415; 57460; 86850; 86900; 86901; A9270; J0131; J1100; J1885; J2405; J2704; J3010; J3490; J7120

== ENCOUNTER 2022-05-08 12:33 | Emergency (ER) | payer MEDICAID ==
[2022-05-08] MEDS ORDERED: Sodium Chloride 0.9% 1,000 ML IV ONE (12:50)
[2022-05-08] MEDS ORDERED: Ondansetron 4 MG/2 ML SDV IVPUSH ONE (12:51)
[2022-05-08] MEDS ORDERED: Pantoprazole 40 MG in Sodium Chloride 0.9% 10 ML IVPUSH ONE (12:51)
[2022-05-08 13:49] LABS: CARBON DIOXIDE,CO2 28.3 mmol/L (21.0-32.0); POTASSIUM,K 3.6 mmol/L (3.5-5.1)
== END 2022-05-08 14:20 | disposition home or self-care (01) ==
LOC: MW.ED 12:33
DX: R10.11 Right upper quadrant pain (principal); R10.12 Left upper quadrant pain; R10.13 Epigastric pain
CPT/HCPCS: 36415; 80053; 81003; 83690; 84703; 85025; 96361; 96374; 96375; 99284; C9113; J2405; J3490; J7030

== ENCOUNTER 2022-06-14 10:26 | Emergency (ER) | payer MEDICAID ==
[2022-06-14] MEDS ORDERED: Sodium Chloride 0.9% 1,000 ML IV ONE (10:45)
[2022-06-14 11:23] LABS: POTASSIUM,K 4.1 mmol/L (3.5-5.1)
== END 2022-06-14 12:03 | disposition home or self-care (01) ==
LOC: MW.ED 10:26
DX: R10.11 Right upper quadrant pain (principal); F10.10 Alcohol abuse, uncomplicated
CPT/HCPCS: 36415; 80053; 83690; 85025; 96360; 99284; J7030

== ENCOUNTER 2023-03-07 19:37 | Emergency (ER) | payer MEDICAID ==
[2023-03-07 21:10] LABS: BASOPHILS ABSOLUTE AUTO 0.1 K/uL (0.0-0.1); BASOPHILS PERCENT AUTO 0.6 % (0.0-1.5); EOSINOPHILS ABSOLUTE AUTO 0.2 K/uL (0.0-0.7); HEMATOCRIT 30.3 % (36.0-46.0); HEMOGLOBIN 10.5 g/dL (12.0-16.0); LYMPHOCYTES ABSOLUTE AUTO 2.1 K/uL (0.6-2.4); LYMPHOCYTES PERCENT AUTO 12.6 % (16.0-40.0); MEAN CORPUSCULAR HEMOGLOBIN 36.1 pg (27.0-32.0); MEAN CORPUSCULAR HGB CONC 34.7 g/dL (31.0-37.0); MEAN CORPUSCULAR VOLUME 104.1 fL (80.0-98.0); MONOCYTES ABSOLUTE AUTO 2.1 K/uL (0.0-0.8); MONOCYTES PERCENT AUTO 12.4 % (0.0-15.0); NEUTROPHILS ABSOLUTE AUTO 12.3 K/uL (1.4-5.7); NEUTROPHILS PERCENT AUTO 73.4 % (48.0-80.0); NRBC ABSOLUTE 0 K/uL; PLATELET COUNT,PLT 154 K/uL (150-400); RED BLOOD CELL COUNT 2.91 M/uL (4.30-5.90); WHITE BLOOD CELL COUNT,WBC 16.72 K/uL (4.0-11.0)
[2023-03-07 21:45] LABS: A/G RATIO 0.3 (0.9-1.6); ALBUMIN 1.2 g/dL (3.4-5.0); BILIRUBIN TOTAL 19.4 mg/dL (0.2-1.0); CALCIUM 6.7 mg/dL (8.5-10.1); CARBON DIOXIDE,CO2 20.2 mmol/L (21.0-32.0); CREATININE 1.1 mg/dL (0.6-1.0); EST CRCL DRUG DOSING (CG) 65.16 mL/min; PROTEIN TOTAL,TP 5.1 g/dL (6.4-8.2)
[2023-03-07 21:47] LABS: POTASSIUM,K 2.4 mmol/L (3.5-5.1)
[2023-03-07] MEDS ORDERED: Potassium Chloride 20 MEQ Tab.ER PO ONE (21:48)
[2023-03-07] MEDS ORDERED: Potassium Chloride 20 MEQ in Premix Bag 1 BAG IV ONE (21:52)
[2023-03-07] MEDS ORDERED: Sodium Chloride 0.9% 250 ML IV ONE (22:00)
[2023-03-07] MEDS ORDERED: Iopamidol 755 MG/ML 500 ML Multipack Bottle IVPUSH ONE (22:13)
[2023-03-07] MEDS: Potassium Chloride 20 MEQ in Premix Bag 1 BAG IV ONE (22:29)
[2023-03-07] MEDS ORDERED: Piperacillin/Tazobactam 3.375 GM in Sodium Chloride 0.9% 100 ML IV ONE (23:08)
[2023-03-07] MEDS ORDERED: Sodium Chloride 0.9% 1,000 ML IV ONE (23:08)
[2023-03-08 00:38] LABS: GLUCOSE,URINE 100 mg/dL (NEGATIVE); KETONES,URINE NEGATIVE (NEGATIVE); LEUKOCYTE ESTERASE,URINE NEGATIVE (NEGATIVE); NITRITE,URINE NEGATIVE (NEGATIVE); OCCULT BLOOD,URINE SMALL (NEGATIVE); PH,URINE 6.5 (5.0-8.0); PROTEIN,URINE NEGATIVE (NEGATIVE); UROBILINOGEN,URINE 0.2 EU/dL (<2.0)
[2023-03-08] MEDS: Potassium Chloride 20 MEQ in Premix Bag 1 BAG IV ONE (00:38)
[2023-03-08] MEDS ORDERED: Sodium Chloride 0.9% 1,000 ML IV ONE (00:42)
[2023-03-08 00:58] LABS: BILIRUBIN,URINE LARGE (NEGATIVE); COLOR,URINE DARK YELLOW
[2023-03-08 00:59] LABS: APPEARANCE,URINE SLT CLOUDY; RBC,URINE 0-3 (0-2/HPF)
[2023-03-08 01:00] LABS: BACTERIA,URINE 2+ (NEGATIVE); EPITHELIAL CELLS,URINE FEW (NONE-FEW)
== END 2023-03-08 01:32 | disposition left against medical advice (07) ==
LOC: MW.ED 19:37
DX: A41.9 Sepsis, unspecified organism (principal); E87.6 Hypokalemia; I95.9 Hypotension, unspecified; K74.60 Unspecified cirrhosis of liver
CPT/HCPCS: 36415; 71045; 74177; 80053; 80307; 81001; 83605; 83690; 85025; 96365; 96366; 96367; 99284; A9270; J2543; J3480; J3490; J7030; J7050; Q9967

== ENCOUNTER 2023-03-08 14:50 | Emergency (ER) | payer MEDICAID ==
[2023-03-08] MEDS ORDERED: Sodium Chloride 0.9% 10 ML Syringe FLUSH PRN (15:32)
[2023-03-08] MEDS ORDERED: Cefepime 2 GM Vial IVPUSH ONE (15:32)
[2023-03-08] MEDS ORDERED: Sodium Chloride 0.9% 2.5 ML Syringe FLUSH PRN (15:32)
[2023-03-08] MEDS ORDERED: Pantoprazole 80 MG in Sodium Chloride 0.9% 10 ML IVPUSH ONE (15:32)
[2023-03-08] MEDS ORDERED: metroNIDAZOLE/Normal Saline 500 MG in Premix Bag 1 BAG IV ONE (15:32)
[2023-03-08 16:18] LABS: HEMATOCRIT 30.1 % (36.0-46.0); HEMOGLOBIN 10.2 g/dL (12.0-16.0); MEAN CORPUSCULAR HGB CONC 33.9 g/dL (31.0-37.0); MEAN CORPUSCULAR VOLUME 106.4 fL (80.0-98.0); NRBC ABSOLUTE 0 K/uL; PLATELET COUNT,PLT 145 K/uL (150-400); RED BLOOD CELL COUNT 2.83 M/uL (4.30-5.90); WHITE BLOOD CELL COUNT,WBC 14.11 K/uL (4.0-11.0)
[2023-03-08] MEDS ORDERED: Octreotide 500 MCG in Sodium Chloride 0.9% 495 ML IV SCH (16:30)
[2023-03-08 16:34] LABS: EOSINOPHILS ABSOLUTE MAN 0.1 (0.0-0.7); EOSINOPHILS PERCENT MAN 1 % (0.0-7.0); LYMPHOCYTES ABSOLUTE MAN 1.3 (0.6-2.4); LYMPHOCYTES PERCENT MAN 9 % (16.0-40.0); METAMYELOCYTE ABSOLUTE MAN 0.3; METAMYELOCYTE PERCENT MAN 2 %; MONOCYTES ABSOLUTE MAN 0.8 (0.0-0.8); MONOCYTES PERCENT MAN 6 % (0.0-15.0); MYELOCYTE ABSOLUTE MAN 0.3; MYELOCYTE PERCENT MAN 2 %; SEG NEUTROPHILS ABSOLUTE MAN 11.3 (1.4-5.7); SEG NEUTROPHILS PERCENT MAN 80 % (48.0-80.0)
[2023-03-08 16:39] LABS: LACTIC ACID 3.3 mmol/L (0.4-2.0)
[2023-03-08 16:45] LABS: A/G RATIO 0.3 (0.9-1.6); BILIRUBIN TOTAL 18.1 mg/dL (0.2-1.0); CALCIUM 6.1 mg/dL (8.5-10.1); CARBON DIOXIDE,CO2 21.6 mmol/L (21.0-32.0); EST CRCL DRUG DOSING (CG) 71.68 mL/min; POTASSIUM,K 2.9 mmol/L (3.5-5.1); PROTEIN TOTAL,TP 4.9 g/dL (6.4-8.2)
[2023-03-08 17:04] LABS: PTT,PARTIAL THROMBOPLSTIN TIME 52.8 SEC (23.9-30.7)
[2023-03-08] MEDS ORDERED: Potassium Chloride 20 MEQ in Premix Bag 1 BAG IV SCH (17:15)
== END 2023-03-08 18:58 ==
LOC: MW.ED 14:50
DX: K74.60 Unspecified cirrhosis of liver (principal); R18.8 Other ascites; J90 Pleural effusion, not elsewhere classified; E87.1 Hypo-osmolality and hyponatremia; K92.1 Melena
CPT/HCPCS: 36415; 36430; 80053; 80143; 80307; 83605; 83690; 83735; 84703; 85025; 85610; 85730; 86850; 86900; 86901; 86920; 87040; 93005; 96365; 96367; 96368; 96375; 99285; C9113; J0692; J2354; J3480; J3490; J7040; P9016; 93010; 99291

== ENCOUNTER 2023-10-16 18:44 | Emergency (ER) | payer SELFPAY ==
[2023-10-16 19:19] LABS: BASOPHILS ABSOLUTE AUTO 0.04 K/uL (0.00-0.20); BASOPHILS PERCENT AUTO 0.4 % (0.0-1.0); EOSINOPHILS ABSOLUTE AUTO 0.24 K/uL (0.00-0.45); EOSINOPHILS PERCENT AUTO 2.6 % (0.0-6.0); HEMATOCRIT 32.2 % (37.0-47.0); HEMOGLOBIN 11.7 g/dL (12.0-16.0); IMMATURE GRAN ABSOLUTE AUTO 0.06 K/uL (0.00-0.05); IMMATURE GRAN PERCENT AUTO 0.7 % (0.0-0.4); LYMPHOCYTES ABSOLUTE AUTO 2.51 K/uL (1.00-4.80); LYMPHOCYTES PERCENT AUTO 27.6 % (24.0-44.0); MEAN CORPUSCULAR HEMOGLOBIN 32.6 pg (28.0-32.0); MEAN CORPUSCULAR HGB CONC 36.3 g/dL (32.0-36.0); MEAN CORPUSCULAR VOLUME 89.7 fL (83.0-99.0); MEAN PLATELET VOLUME 9.5 fL (9.4-12.3); MONOCYTES ABSOLUTE AUTO 0.72 K/uL (0.00-0.80); MONOCYTES PERCENT AUTO 7.9 % (0.0-8.0); NEUTROPHILS ABSOLUTE AUTO 5.54 K/uL (1.80-7.70); NEUTROPHILS PERCENT AUTO 60.8 % (41.0-71.0); PLATELET COUNT,PLT 204 K/uL (150-400); RED BLOOD CELL COUNT 3.59 M/uL (4.10-5.30); WHITE BLOOD CELL COUNT,WBC 9.11 K/uL (3.9-11.3)
[2023-10-16 20:04] LABS: ALBUMIN 3.1 g/dL (3.4-5.0); BILIRUBIN TOTAL 0.4 mg/dL (0.2-1.0); CALCIUM 9.6 mg/dL (8.5-10.1); CREATININE 0.7 mg/dL (0.6-1.0); EST CRCL DRUG DOSING (CG) 101.48 mL/min; POTASSIUM,K 3.5 mmol/L (3.5-5.1); PROTEIN TOTAL,TP 6.3 g/dL (6.4-8.2)
== END 2023-10-16 21:07 | disposition home or self-care (01) ==
LOC: MW.ED 18:44
DX: Z34.90 Encounter for supervision of normal pregnancy, unspecified, unspecified trimester (principal); Z75.8 Other problems related to medical facilities and other health care; Z79.899 Other long term (current) drug therapy
CPT/HCPCS: 36415; 76817; 76817-26; 80053; 84702; 85025; 99281; 99284

== ENCOUNTER 2024-05-13 05:51 | Inpatient (IN) | payer BC ==
[2024-05-13] MEDS ORDERED: Lidocaine 1% 50 ML MDV INJECT PRN (05:58)
[2024-05-13] MEDS ORDERED: Water For Irrigation,Sterile 1,000 ML Container IRR PRN (05:58)
[2024-05-13] MEDS ORDERED: Carboprost Tromethamine 250 MCG/1 mL Vial IM PRN (05:58)
[2024-05-13] MEDS ORDERED: Butorphanol 2 MG/ML SDV IVPUSH PRN (05:58)
[2024-05-13] MEDS ORDERED: Methylergonovine 0.2 MG/1 ML Amp IM PRN (05:58)
[2024-05-13] MEDS ORDERED: Sodium Chloride 0.9% 2.5 ML Syringe FLUSH PRN (05:58)
[2024-05-13] MEDS ORDERED: Ondansetron 4 MG/2 ML SDV IVPUSH PRN (05:58)
[2024-05-13] MEDS ORDERED: Terbutaline 1 MG/ML SDV SUBCUT PRN (05:58)
[2024-05-13] MEDS ORDERED: Sodium Chloride 0.9% 20 ML SDV IV PRN (05:58)
[2024-05-13] MEDS ORDERED: Sodium Chloride 0.9% 10 ML Syringe FLUSH PRN (05:58)
[2024-05-13] MEDS ORDERED: Misoprostol 200 MCG Tab PO PRN (05:58)
[2024-05-13] MEDS ORDERED: Oxytocin/0.9 % Sodium Chloride 30 UNIT/500 ML BAG IV SCH (06:00)
[2024-05-13] MEDS: Oxytocin/0.9 % Sodium Chloride 30 UNIT/500 ML BAG IV SCH (06:22)
[2024-05-13] MEDS: Sodium Chloride 0.9% 1,000 ML IV SCH (06:22)
[2024-05-13 06:37] LABS: INR 0.96 (0.86-1.11)
[2024-05-13] MEDS ORDERED: Phenylephrine HCl In 0.9% NaCl 1 MG/10 ML Syringe IVPUSH PRN (07:23)
[2024-05-13] MEDS ORDERED: ePHEDrine 50 MG/ML SDV IVPUSH PRN (07:23)
[2024-05-13] MEDS ORDERED: dexmedeTOMIDine HCl 200 MCG/2 ML SDV EPIDUR SCH (07:30)
[2024-05-13] MEDS: Ropivacaine HCl/PF 400 MG in Premix Bag 1 BAG EPIDUR SCH (12:32)
[2024-05-13] MEDS ORDERED: Ibuprofen 800 MG Tab PO PRN (21:07)
[2024-05-13] MEDS ORDERED: Acetaminophen 500 MG Tab PO PRN (21:07)
[2024-05-13] MEDS ORDERED: Docusate Sodium 100 MG Cap PO PRN (21:07)
[2024-05-13] MEDS ORDERED: Hydrocortisone 2.5% Crm 30 GM Tube TOP PRN (21:07)
[2024-05-13 21:25] LABS: PH,UMBILICAL ARTERIAL 7.156 (7.18-7.38); PH,UMBILICAL VENOUS 7.309 (7.25-7.45)
[2024-05-13] MEDS: Witch Hazel Medicated Pads 40/Jar TOP PRN (23:39)
[2024-05-13] MEDS: Lanolin 100% Cream 7 GM Tube TOP PRN (23:40)
[2024-05-13] MEDS: Benzocaine/Menthol 20%-0.5% Spray 78 GM Cannister TOP PRN (23:40)
[2024-05-14 05:49] LABS: HEMATOCRIT 30.4 % (37.0-47.0); HEMOGLOBIN 10.4 g/dL (12.0-16.0)
== END 2024-05-15 11:00 | disposition home or self-care (01) | DRG 560 ==
LOC: MW.OB 05:51 → OBSVTOIN 20:51 → MW.OB 20:51
PROVIDERS: ADMIT Obstetrics & Gynecology; ATTEND Obstetrics & Gynecology
PROC: 10E0XZZ Delivery of Products of Conception, External Approach (ICD-10-PCS; principal; 2024-05-13)
PROC: 10907ZC Drainage of Amniotic Fluid, Therapeutic from Products of Conception, Via Natural or Artificial Opening (ICD-10-PCS; 2024-05-13)
PROC: 3E0R3BZ Introduction of Anesthetic Agent into Spinal Canal, Percutaneous Approach (ICD-10-PCS; 2024-05-13)
PROC: 00HU33Z Insertion of Infusion Device into Spinal Canal, Percutaneous Approach (ICD-10-PCS; 2024-05-13)
PROC: 10H07YZ Insertion of Other Device into Products of Conception, Via Natural or Artificial Opening (ICD-10-PCS; 2024-05-13)
DX: O26.62 Liver and biliary tract disorders in childbirth (principal); Z37.0 Single live birth; Z3A.39 39 weeks gestation of pregnancy
CPT/HCPCS: 01967; 36415; 51702; 59025; 59409; 82803; 85014; 85018; 85610; 86592; 86850; 86900; 86901; A9270-GY; J2590; J2795; J7030